=== PATIENT | male | born 1950 | race Caucasian/White ===

== ENCOUNTER 2018-07-29 11:04 | Inpatient (IN) ==
--- NOTE | 2018-07-29 11:25 | PDOC ---
Abdomen/Flank HPI - General Chief Complaint: Abdomen Pain Stated Complaint: ABDOMINAL PAIN Date Seen by Provider: 07/29/18 Time Seen by Provider: 11:24 Source: POSITIVE: Patient, Spouse Exam Limitations: POSITIVE: No limitations Nurse's Notes Reviewed & Considered: Yes - History of Present Illness Initial Comments: This is a well-developed, well-nourished, very pleasant, 67-year-old male, complaining of left lower quadrant abdominal pain. Patient with sudden onset of left lower abdominal pain that began yesterday afternoon while sitting at home resting. Pain has escalated and gotten worse today with with focal tenderness in the left lower quadrant. His initial pain was in the left lower quadrant and left upper quadrant and he had nausea and dry heaves, also a headache. Today he denies headache, no sore throat, no chest pain or shortness of breath, he does have nausea but no vomiting or diarrhea, no hematuria or dysuria, he does have chills but no fever and no sweats. Denies any myalgias or arthralgias, no rash es. Patient has a history of testicular cancer and left-sided orchiectomy that was performed last year and [facility] by Dr. Luis Angel Lovell. He subsequently received chemotherapy at [facility]. His checkup in July was normal. Body Location Affected: REPORTS: Abdomen Timing: REPORTS: Abrupt Duration: <24 hours Severity: Severe Quality: REPORTS: Cramping, "Pain", Tenderness Abdominal Pain Onset Location: REPORTS: LUQ, LLQ Abdominal Pain Radiation: REPORTS: No radiation Context: REPORTS: Rest, Sitting Modifying Factors: improves with: Nothing Associated Symptoms: REPORTS: Chills, Nausea Similar Symptoms Previously: No Recent Care Received: REPORTS: Denies Any Prior Injuries Related to Current Complaint?: No - Patient Home Medications Home Medications: Home Medications olmesartan 20 mg-hydrochlorothiazide 12.5 mg tablet 1 tab PO QDAY #30 tab 03/28/18 - Patient Allergies Allergies/Adverse Reactions: Allergies Allergy/AdvReac Type Severity Reaction Status Date / Time Penicillins Allergy NOT Verified 07/29/18 11:17 APPLICABLE procaine HCl [From Novocain] Allergy Headaches Verified 07/29/18 11:17 Past Medical History - heen Additional HEENT History: Glasses Cardiovascular History: Hypertension Additional Respiratory History: Seasonal allergies Gastrointestinal History: Denies History Genitourinary History: Denies History Endocrine History: Denies History Musculoskeletal History: Arthritis Prosthesis or Implant: No Neurological History: Denies History Blood Disorders: Denies History Psychiatric History: Depression History of Sexually Transmitted Diseases: No Cancer History: Skin History of MDRO: No History of Other Communicable Diseases: No In the Past 12 Months, Have Used or Abuse Any Substance: None Type / Date of Surgery: Hernia repair as a child, Testical removal, colonoscopy, Right hand surgery to fingers. Anesthesia Reactions: Yes (PONV) Malignant Hyperthermia: No Significant Family History: Cancer ROS - Limitations ROS Limitations: No Limitations Constitution: REPORTS: Chills Cardiovascular: REPORTS: Denies Cardiac Symptoms Respiratory: REPORTS: Denies Resp Symptoms Neurological: REPORTS: Denies Neuro Symptoms Gastrointestinal: REPORTS: Abdominal Pain, Nausea Endocrine: REPORTS: Denies Symptoms Musculoskeletal: REPORTS: Denies MS Symptoms Genitourinary: REPORTS: Denies Symptoms Eyes: REPORTS: Denies Symptoms ENT: REPORTS: Denies Symptoms Skin: REPORTS: Denies Skin Symptoms Lympathic: REPORTS: Denies Lympathic Symptoms Immunologic: POSITIVE: Denies Symptoms Psychiatric: POSITIVE: Denies Psych Symptoms Abdominal/Flank Pain PE - General Appearance General Appearance: POSITIVE: Alert, Cooperative, No Acute Distress, No Evidence of Trauma - HEENT HEENT: POSITIVE: Head Inspection Nml, Eyes Inspection Nml, Ears Inspection Nml, Nose Inspection Nml, Oral/Dental Inspect. Nml, Pharynx Inspect. Nml, PERRL, EOMI - Neck Neck: POSITIVE: Normal Inspection, No Apparent Injury - Respiratory Respiratory: POSITIVE: No Respiratory Distress, Breath Sounds Normal, Chest Non- Tender - Cardiovascular Cardiovascular: POSITIVE: Regular Rate and Rhythm, Heart Sounds Normal, Strong Pulses Peripheral Pulses: Radial (L): 4+ - Chest Chest: POSITIVE: Non Tender - Abdomen Abdomen: Soft: (All Quadrants), Normal Bowel Sounds: (All Quadrants), Denies Tenderness: (RLQ), (RUQ), No Splenomegaly: (All Quadrants), No Hepatomegaly: (All Quadrants), No Guarding: (RLQ), (LUQ), (RUQ), No Rebound: (All Quadrants), No Palpable Pulse: (All Quadrants), No Palpabale Mass: (All Quadrants), No Distention: (All Quadrants), No Rigidity: (All Quadrants), Tenderness Noted: (LLQ), (LUQ), Guarding: (LLQ) - Back Back: POSITIVE: Normal Inspection - Skin Skin: POSITIVE: Intact, Normal For Race, Warm, Dry, No Rash - Extremities Extremity: Non-Tender: (All Extremities), Normal ROM: (All Extremities), Normal Inspection: (All Extremities), Pelvis Stable: (All Extremities) - Neurological Neurological: POSITIVE: Affect Apporpriate, Oriented X3, Motor Normal, Sensation Normal - Psychological Psychiatric: POSITIVE: Affect Appropriate, Mood Appropriate Abdomen Progress - Results Reviewed by me Xrays/CTs/US Reviewed by me: Yes Discussed with Radiologist: Yes Lab Results Reviewed by Me: Yes CBC and BMP: 07/29/18 11:10 07/29/18 11:10 - Patient's Progress Pain Medication Addressed: POSITIVE: Yes Re-examine Time: 14:17 Status: POSITIVE: Improved MDM / ED Course: Patient was evaluated, an IV started, blood drawn and sent to the lab for studies, CT examination of his abdomen was obtained. Findings: CBC shows white count of 18.7 with normal hemoglobin and hematocrit and platelets, neutrophils are elevated at 88.9%, lymphs are 6.4%, monocytes are 4.3%. ESR is normal at 11 and CRP is elevated at 19.8. Urinalysis is negative. CMP shows abnormalities of potassium at 3.6, BUN of 24, creatinine 1.4, glucose 154, total bilirubin of 2.7, ALT of 16. Magnesium is normal at 1.8. Amylase is 67 and lipase is 18. CT scan of the abdomen shows perforated viscus likely from a diverticuli. Assessment: Acute abdomen with perforated diverticuli. Plan: I have contacted Dr. Gwyn Gray, who is coming to the emergency room to evaluate the patient and taking them to surgery for indicated procedures. He was started on Invanz, 1 g IV. - Consult Consult (If Yes, Name of Consulting MD & Time Called): Yes (Dr. Tipton 1410 hrs) Consulting MD will see pt:: POSITIVE: [facility] Admit Counseled: POSITIVE: Patient, Family, RE: Lab Results, RE: Radiology Results, RE: DX Patient Care Time - Estimated PCT Patient Care Time (In Minutes): 45 Vital Signs - VS Reviewed Vital Signs Reviewed: Yes Discharge Clinical Impression: Perforated bowel Discharge Disposition: Admit to Inpatient Condition: Stable Follow Up With: PERLA MAHONEY [Primary Care Provider] - Date Decision to Admit to Inpatient: 07/29/18 Time Decision to Admit to Inpatient: 14:10
[2018-07-29 11:30] LABS: BASOPHILS # (AUTO) 0.01 10*3/UL; BASOPHILS % (AUTO) 0.1 % (0-1); EOSINOPHILS # (AUTO) 0 10*3/UL; EOSINOPHILS % (AUTO) 0 % (0-8); Hematocrit [HCT] 45.8 % (42.0-52.0); MEAN CORPUSCULAR HEMOGLOBIN 32.7 PG (27-31); MEAN CORPUSCULAR HGB CONC 34.9 g/dL (33-37); MEAN CORPUSCULAR VOLUME 93.5 FL (80-90); MEAN PLATELET VOLUME 9.4 FL (7.4-12.2); MONOCYTES # (AUTO) 0.81 10*3/UL (0.3-0.8); MONOCYTES % (AUTO) 4.3 % (5-15); NEUTROPHILS # (AUTO) 16.62 10*3/UL; NEUTROPHILS % (AUTO) 88.9 % (50-80)
[2018-07-29] MEDS ORDERED: ONDANSETRON 4 MG/2 ML VIAL IVP ONE (11:33)
[2018-07-29] MEDS ORDERED: MORPHINE SULFATE 4 MG/1 ML IVP ONE (11:33)
[2018-07-29] MEDS ORDERED: Sodium Chloride 0.9% 1,000 ML PRIMARY IV ONE (11:33)
[2018-07-29 11:37] LABS: PLATELET MORPHOLOGY COMMENT NORMAL MORPHOLOGY (NORM); RBC MORPHOLOGY COMMENT NORMAL MORPHOLOGY (NORM); WBC MORPHOLOGY COMMENT NORMAL MORPHOLOGY (NORM)
[2018-07-29 11:39] LABS: BUN/CREATININE RATIO 17.14 (6-20); SERUM ALBUMIN 4.4 g/dL (3.5-4.8)
[2018-07-29 12:08] LABS: Erythrocyte Sediment Rate 11 MM/HR (0-15)
[2018-07-29 13:41] LABS: BILIRUBIN,URINE NEGATIVE (NEG); CLARITY,URINE CLEAR (CLEAR); COLOR,URINE YELLOW (Y); GLUCOSE, URINE (UA) NEGATIVE (NEG); PH,URINE 5.5 (5.0-8.5); PROTEIN,URINE NEGATIVE (NEG); UROBILINOGEN,URINE 0.2 EU/dL (0.2)
[2018-07-29 13:43] LABS: OCCULT BLOOD,URINE TRACE (NEG)
[2018-07-29 13:48] LABS: BACTERIA,URINE FEW; RBC,URINE 0-4 /hpf; SQUAMOUS EPITHELIAL CELL,UR FEW; URINE SAMPLE TYPE CLEAN CATCH URINE; WBC,URINE 0-1
[2018-07-29] MEDS ORDERED: Lactated Ringers 1,000 ML PRIMARY IV ONE ×4 (14:14→18:53)
[2018-07-29] MEDS ORDERED: Ertapenem Inj 1 GM in Sodium Chloride 0.9% 100 ML IV ONE (14:14)
--- NOTE | 2018-07-29 14:26 | DI ---
CT Abdomen/Pelvis W Contrast 07/29/2018 10:24 AM History: [facility] DI ^abd pain Comparison: 07/10/2018. Technique: Imaging was performed with a multi-detector CT scanner. Data acquisition was obtained from the dome of the diaphragm through the pubic symphysis without oral contrast and after the uneventful administration of 75 mL of Omnipaque 300 intravenous contrast material. Multiplanar reformations wer e performed. Findings: There is colonic diverticulosis with bowel wall thickening and evidence of hollow viscus pe rforation in the left lower quadrant where there is a flocculent collection along the posterior aspec t of the colon that most likely represents extraluminal stool. There is no definite rim-enhancing for med fluid collection to suggest abscess formation. Free intraperitoneal air is noted along the left p osterior peritoneum extending to the level of the third segment of the duodenum. Moderate fat strandi ng and fascial thickening is noted along the left lateral pelvis. Hollow viscus organs demonstrate ot herwise normal course and caliber. No abdominopelvic lymphadenopathy is present. A 1.8 cm simple cyst is noted in the interpolar region of the right kidney. There is normal CT appear ance of the liver, gallbladder, adrenal glands, spleen, left kidney, and pancreas. Vascular structure s are intact with atheromatous aortoiliac calcifications. The celiac and common hepatic arteries are ectatic at 1.4 cm. There is no inguinal or abdominal wall hernia. The osseous structures are within normal limits for the patient's age. The lung bases are notable for bilateral dependent lower lobe and lingular atelectasis. Heart size is normal without pericardial effusion. Impression: 1. There is colonic diverticulosis and evidence of hollow viscus perforation in the left lower quadra nt where there is a flocculent collection that most likely represents extraluminal stool. There is no definite rim-enhancing fluid collection to suggest abscess formation. Surgical consultation is recom mended for definitive management. 2. The celiac and common hepatic arteries are ectatic at 1.4 cm. These findings were discussed telephonically with Dr. Martinez of the Emergency Department at 13:15 shi rs on the day of the exam.
[2018-07-29] MEDS ORDERED: fentaNYL Inj 250 MCG/5 ML VIAL ONE ×3 (15:44→17:38)
[2018-07-29] MEDS ORDERED: MIDAZOLAM HCL 2 MG/2 ML VIAL ONE (15:44)
[2018-07-29] MEDS ORDERED: PROPOFOL 10 MG/1 ML (200 MG/20 ML) VIAL IV ONE (15:47)
[2018-07-29] MEDS ORDERED: KETAMINE 100 MG/1 ML - 5 ML ONE (15:49)
[2018-07-29] MEDS ORDERED: LIDOCAINE W/ SODIUM BICARB 0.5 ML SYR ONE (15:54)
[2018-07-29] MEDS ORDERED: LIDOCAINE HCL 2 % 10 ML JELLY URO-JECT TOPICAL ONE ×2 (15:54→16:45)
[2018-07-29] MEDS ORDERED: ROCURONIUM 10 MG/1 ML - 5 ML VIAL IVP ONE ×2 (15:55→17:04)
[2018-07-29] MEDS ORDERED: SUCCINYLCHOLINE CHLORIDE 20 MG/1 ML - 10 ML ONE (15:55)
--- NOTE | 2018-07-29 15:59 | PDOC ---
HPI - History of Present Illness Date of Service: 07/29/18 Time of Service: 15:54 Chief Complaint: Left lower quadrant pain History of Present Illness: 67-year-old gentleman who comes in with having a 2 day history of left lower quadrant abdominal pain. The patient states that the pain started on 07/28/2018. Pain progressively became more severe. Patient came in the emergency department. Patient states he's been having chills at home but has not recorded a fever. Patient's workup in the emergency department included a white count which is elevated over 18,000. Left shift. Patient had a CT scan that shows a perforated colon. There is inflammatory change from the sigmoid colon. There is free air that is seen. Is also appears to be with the radiologists are: Fecal contamination of the abdominal cavity. Past Medical History Medical History: Testicular cancer. Hypertension Surgical History: Laminectomy. Hernia repair. Colonoscopy over 10 years ago Tobacco Use: Never Smoker In the Past 12 Months, Have Used or Abuse Any of the Following Substance: None Medication / Allergies Home Medications: Home Medications Medication Instructions Recorded Confirmed olmesartan 20 1 tab PO QDAY #30 tab 03/28/18 07/29/18 mg-hydrochlorothiazide 12.5 mg tablet Allergies/Adverse Reactions: Allergies Allergy/AdvReac Type Severity Reaction Status Date / Time Penicillins Allergy NOT Verified 07/29/18 11:17 APPLICABLE procaine HCl [From Novocain] Allergy Headaches Verified 07/29/18 11:17 Exam - Vitals Vital Signs: Vital Signs Temperature 97.6 F Temperature Source Temporal Artery Scan Pulse Rate [Pulse Oximeter] 119 Respiratory Rate 20 Blood Pressure [Left Arm] 148/122 Pulse Ox 96 Oxygen Delivery Method Room Air Height 5 ft 10 in Weight 180 lb - General General Appearance: No Acute Distress, Cooperative - Head Head Exam: Normocephalic - Eye Eye Exam: POSITIVE: PERRL, EOMI - Neck Neck Exam: Normal Inspection, Full ROM - Respiratory Respiratory Exam: POSITIVE: Clear to Auscultation - Bilaterally, Breathing Non Labored - Cardiovascular Cardiovascular Exam: POSITIVE: No Murmur, No Gallops, No Rubs - GI/Abdominal GI/Abdominal Exam: POSITIVE: Soft, Distended, No Hepatomegaly, No Splenomegaly Additional GI/Abdominal Exam Details: Left lower quadrant abdominal pain - Rectal Rectal Exam: POSITIVE: Deferred - External Exam: POSITIVE: Deferred - Extremities Extremities Exam: POSITIVE: Full ROM, No Clubbing Present, No Edema Present - Neurological Neurological Exam: POSITIVE: Alert, Oriented x 3, Normal Gait, CN II-XII Intact - Psychiatric Psychiatric Exam: POSITIVE: Normal Affect, Normal Mood - Integumentary Integumentary Exam: POSITIVE: Normal Color, Warm Results - Labs CBC and BMP: 07/29/18 11:10 07/29/18 11:10 Assessment and Plan - Patient Problems (1) Diverticulitis large intestine w/o perforation or abscess w/bleeding Current Visit: Yes Status: Acute Code(s): K57.33 - Diverticulitis of large intestine without perforation or abscess with bleeding - Assessment / Plan Additional Assessment/Plan Details: This point the patient does have ruptured diverticulitis with perforated bowel. There appears be some fecal contamination. Therefore, I do not think again suggestive antibiotics. This is explained to him. Is taken in surgery for exploratory laparotomy with bowel resection and colostomy. Risks benefits were explained to him and his . They understand these. He does understand he'll get a colostomy today. This with temporary colostomy (with plans in the future taken down). He was started on Invanz in the emergency department. He'll be taking or the first available time.
[2018-07-29] MEDS ORDERED: Nasal Sanitizer POPSWAB ampule 3 AMP (Nozin) PREOP DOSE ENOS SCH ×2 (16:00→16:06)
[2018-07-29] MEDS ORDERED: Lactated Ringers 1,000 ML PRIMARY IV SCH ×3 (16:00→17:30)
[2018-07-29] MEDS ORDERED: ESMOLOL HCL 100 MG/10 ML VIAL ONE (16:26)
[2018-07-29] MEDS ORDERED: LIDOCAINE HCL 2 % 10 ML JELLY URO-JECT TOPICAL PRN (16:46)
[2018-07-29] MEDS ORDERED: METOPROLOL TARTRATE 5 MG/5 ML VIAL ONE (16:56)
[2018-07-29] MEDS ORDERED: ONDANSETRON 4 MG/2 ML VIAL IVP PRN ×3 (17:17→20:40)
[2018-07-29] MEDS ORDERED: Meperidine Inj 50 MG/ML CARPUJECT IVP PRN (17:17)
[2018-07-29] MEDS ORDERED: LIDOCAINE W/ SODIUM BICARB 0.5 ML SYR SUBD PRN (17:17)
[2018-07-29] MEDS ORDERED: ATROPINE SULFATE 0.4 MG/1 ML VIAL IVP PRN (17:17)
[2018-07-29] MEDS ORDERED: Prochlorperazine Edisylate Inj 10mg/2ml vial IVP PRN (17:17)
[2018-07-29] MEDS ORDERED: ePHEDrine Inj 50 MG/ML AMP IVP PRN (17:17)
--- NOTE | 2018-07-29 17:20 | CRNA.PROGR ---
Anesthesia Time - Procedure/Recovery Time Start Date: 07/29/18 End Date: 07/29/18 Anesthesia : Time In: 16:17 Anesthesia : Time Out: 20:07 Anesthesia : Total Time: 230 - Total Anesthesia Time Total Anesthesia Time (minutes): 230 - Other Weight: 81.647 kg Height: 5 ft 10 in Body Mass Index (BMI): 25.8 Physical Status: P3 Anesthesia Type: General Anesthesia : ET
--- NOTE | 2018-07-29 17:21 | CRNA.PROGR ---
Post Anesthesia Phase II - Post Anesthesia Phase II Patient Stable and Discharged To: ICU Care Assumed By Surgeon: Alessandro Tipton MD Temperature: 97.6 F Pulse Rate: 103 Respiratory Rate: 20 Blood Pressure: 109/73 Pulse Ox: 96 Total Shanita Score at Discharge: 8 Post Anesthesia Discharge Criteria Met: Yes Additional Details: Grossly contaminated belly. Probable sepsis. Anticipate aggressive fluid therapy, possible transfusion pulmonary toilet and antibiotic therapy all needed.
--- NOTE | 2018-07-29 17:21 | CRNA.PROGR ---
Anesthesia Recovery Phase I - Post Anesthesia Evaluation Patient's Condition on Arrival in Phase I: Fair Patient's Condition on Arrival in Phase II: Fair (medicated) Pain Level: 4
[2018-07-29] MEDS ORDERED: DEXAMETHASONE PF 10 MG/1 ML VIAL ONE (17:25)
[2018-07-29] MEDS ORDERED: ONDANSETRON 4 MG/2 ML VIAL ONE (17:25)
[2018-07-29] MEDS ORDERED: Hetastarch 6% + NS 500 ML IV ONE ×2 (18:17→19:26)
[2018-07-29] MEDS ORDERED: Sodium Chloride 0.9% 500 ML ONE ×2 (18:38→21:27)
[2018-07-29] MEDS ORDERED: SUGAMMADEX SODIUM 200 MG/2 ML VIAL IV ONE (19:42)
[2018-07-29] MEDS ORDERED: Keys-Morphine PCA PRN ×3 (20:16→20:40)
[2018-07-29] MEDS ORDERED: NALOXONE 0.4 MG/1 ML VIAL IVP PRN ×3 (20:16→20:40)
[2018-07-29] MEDS ORDERED: Acetaminophen 1000mg Inj 1,000 MG/100 ML VIAL IV PRN ×2 (20:16→20:40)
[2018-07-29] MEDS ORDERED: MORPHINE SULFATE/PF PCA 30 MG/30 ML IV SCH (20:30)
[2018-07-29] MEDS ORDERED: D5-1/2NS + 20mEq KCL 1,000 ML PRIMARY IV SCH (20:30)
[2018-07-29] MEDS ORDERED: HYDROmorphone 2 MG/1 ML ONE (20:30)
[2018-07-29] MEDS ORDERED: Ertapenem Inj 1 GM in Sodium Chloride 0.9% 100 ML IV SCH (20:30)
[2018-07-29] MEDS: HYDROmorphone 2 MG/1 ML IVP PRN ×3 (20:32→20:40)
--- NOTE | 2018-07-29 20:38 | GEN.OPNOTE ---
Operative Note Surgery Date: 07/29/18 Preoperative Diagnosis: Diverticulitis with rupture of the colon with stool peritonitis Postoperative Diagnosis: Diverticulitis with rupture of the colon and stool peritonitis. Uncontrolled hemorrhage from spleen Procedure: Sigmoid colectomy with colostomy (Sameer's procedure closed). Mobilization of splenic flexure. Splenectomy Surgeon: Saeed Tipton MD Clinical Rn Liaison: Gio Kaye MD Anesthesia Provider: Arleen Altamirano CRNA Anesthesia Type: General Estimated Blood Loss (mL): 1,300 Fluids: 1 L Hespan. 3, 800 lactated Ringer's Pathology: Sigmoid colon. Spleen Indications: Patient comes with left lower quadrant abdominal pain leukocytosis. CT scan shows that he has a perforated sigmoid colon with appears be fecal contamination Findings: Patient had a posterior ruptured colon with a well-contained fecal contamination in the retroperitoneum. Patient had a very large heavy omentum with numerous accessory spleens Patient developed bleeding from the spleen that could not be controlled with non-operative measures. Therefore, the spleen had to be removed Complications: Splenic bleeding Operative Summary: Patient is brought in operative room. Placed supine position. Given general tracheal anesthesia. Patient is prepped draped sterile fashion. Timeout performed per protocols. I then made a midline incision around his umbilicus down to the pubic symphysis. Hemostased obtained with electrocautery. Dissection through the subcutaneous tissue with electrocautery. I then opened in the midline to the linea alba using left cautery. Bluntly entered the peritoneal cavity. Then placed the fingers in the abdominal cavity and opened up the remainder the peritoneal cavity using electrocautery. The small bowel was out of the way when cutting the perineum. I placed an Mohsen retractor in the abdominal cavity. At this point identified the large mass in the left lower quadrant. I bluntly dissected this way from the sidewall. I ended the "cavity and there is a large amount of free fecalith material within this cavity. I then was able to identify the hole in the posterior wall of the sigmoid colon. I then mobilized the left colon using electrocautery. We found a place that looked like viable noninfected bowel. I made a defect in the mesentery. The TLC 75 stapler across the bowel and divided the descending colon. I think clamped divided the mesentery to mobilize the sigmoid colon. Tied off the mesentery 0 Vicryl sutures. Carried the dissection pass the disease portion of the bowel. I then placed the TXA 60's stapler across the colon thus dividing the colon. Handed off the surgical specimen. We then started irrigating the abdominal cavity. We got up to irrigating the left upper quadrant around the sp fred there is a large amount of what appeared be fresh bleeding and also clots. We put packing up around the spleen in an attempt to control any bleeding. At this point, we went on to mobilize the splenic flexure. I had to dissect through the omentum in this area to get exposure of the transverse colon and to mobilize the splenic flexure. After mobilizing the splenic flexures, I reinspected the spleen. There appeared to be a small bleeding point on the inferior pole of the spleen. This was controlled with electrocautery. We then repacked the area. We left the packing on for 5 minutes. Upon removing the packing it started bleeding. We then divided the inferior short gastrics to get exposure to the hilum. The spleen continued bleeding. We repacked. Every time we removed the packing every time remove the packing the spleen started to rebleed. We found multiple little retroperitoneal bleeders that were controlled. We Remove the packing again and it started bleeding again. The estimated blood loss was over a liter. I believed it was best to do a splenectomy. we took down the short gastrics and tied them with 2-0 Vicryl sutures. This give us exposure to we took the hilar vessels by clamping and dividing own with peon clamps. The spleen was handed off as surgical specimen. We tied off the hilar vessels with 0 Vicryl sutures. This point we found a little area bleeding on the tail of the pancreas. This was controlled with electrocautery. After we had adequate hemostasis we then repacked the left upper quadrant. We then inspected there is some minor bleeding off the omentum which was controlled with electrocautery. There is an omental defect that was closed with 2-0 Vicryl continuous running suture. Is noted the patient had numerous accessory spleens within the omentum. I then removed all packing. There is no further bleeding from around the spleen. We reirrigated the abdominal cavity. Total amount of irrigation was 8 L. I then grasped the skin with Allis clamps. He is electrocautery created a colostomy site. Did a crucifix incision across the fascia. I brought the end of the descending colon out for the colostomy. We closed the midline incision using 0 PDS continuous running suture. We packed the subcutaneous tissue because of the contamination with fecal peritonitis. I then opened up the colon and matured the colostomy with 4-0 Vicryl simple sutures. Colostomy bag place. All counts were correct at the end of the procedure. Patient was transferred to recovery room in stable but guarded condition. Patient Problems - Patient Problem List (1) Diverticulitis large intestine w/o perforation or abscess w/bleeding Current Visit: Yes Status: Acute Code(s): K57.33 - Diverticulitis of large intestine without perforation or abscess with bleeding Category: Medical Procedure Codes - Surgical Procedures Primary Surgical Procedure: Other CPT Code(s) (Colectomy with end colostomy and closure of distal segment Sanchez's procedure CPT code 93321; takedown of splenic flexure CPT code 95920; splenectomy 98922)
[2018-07-29] MEDS ORDERED: Keys-Morphine Palliative Care ONE (21:00)
[2018-07-29] MEDS ORDERED: Keys-Morphine PCA ONE (21:05)
[2018-07-29] MEDS: D5-1/2NS + 20mEq KCL 1,000 ML PRIMARY IV SCH (21:55)
[2018-07-29] MEDS: MORPHINE SULFATE/PF PCA 30 MG/30 ML IV SCH (22:08)
[2018-07-29] MEDS ORDERED: MORPHINE SULFATE 4 MG/1 ML IVP PRN (22:30)
--- NOTE | 2018-07-29 22:42 | PDOC ---
HPI - History of Present Illness Date of Service: 07/29/18 Time of Service: 22:37 Chief Complaint: Abdominal pain History of Present Illness: Very pleasant 67-year-old male that I was consulted on by Dr. Tipton this evening after the patient had ruptured diverticulum with stool in the peritoneal space and eventually needed not only a Sanchez procedure but eventually needed a splenectomy as well. The patient postoperatively is quite groggy, still in some pain, and is on a BOUFFANT CURTAIN MACHINE TENDER with morphine at this time. The history is obtained from his . Preoperatively, he has a history of hypertension. He has not had any coronary artery disease complications or other medical issues develop. He does not smoke and he rarely drinks alcohol. History of diverticular disease was not known that I am aware of. Patient got a dose of Invanz prior to the operating room. Exacerbating factors could not be obtained due to the patient's acute pos toperative state. His hemoglobin currently is around the 9.3 stage, and he is mildly tachycardic with a systolic pressure of just over 100. He is afebrile. It is reported to me that the patient may have already had his Pneumovax vaccine. He did just finish chemotherapy for testicular cancer with METS to the lungs (no brain metastatic disease). Still has his port in the left upper chest. He just had a recent check up with CT scans and blood work with his oncologist and was given a clean bill of health with no evidence of recurrence. Past Medical History Medical History: Testicular cancer. Hypertension Surgical History: Laminectomy. Hernia repair. Colonoscopy over 10 years ago Pertinent Family History: no family history of diabetes. Past Social History: does not smoke, for over 30 years, retired, rarely drinks alcohol, has healthy children Tobacco Use: Never Smoker In the Past 12 Months, Have Used or Abuse Any of the Following Substance: None Alcohol Use: Rarely Medication / Allergies Home Medications: Home Medications Medication Instructions Recorded Confirmed olmesartan 20 1 tab PO QDAY #30 tab 03/28/18 07/29/18 mg-hydrochlorothiazide 12.5 mg tablet Allergies/Adverse Reactions: Allergies Allergy/AdvReac Type Severity Reaction Status Date / Time Penicillins Allergy NOT Verified 07/29/18 11:17 APPLICABLE procaine HCl [From Novocain] Allergy Headaches Verified 07/29/18 11:17 Review of Systems - Review of Systems ROS Unobtainable: Due to Mental Status (Due to his acute postoperative state, and pain medications on board, it's very difficult to obtain a review of systems, although the patient does deny shortness of breath or chest pain.) Exam - Vitals Vital Signs: Vital Signs Temperature 97.3 F Temperature Source Oral Pulse Rate [Pulse Oximeter] 93 Pulse Rate 103 Respiratory Rate 12 Blood Pressure [Left Arm] 107/70 Blood Pressure 109/73 Pulse Ox 97 Oxygen Flow Rate 4 Oxygen Delivery Method Nasal Cannula Height 5 ft 10 in Weight 188 lb Appears somewhat pale - General General Appearance: Cooperative - Head Head Exam: Normal Inspection, Normocephalic, Atraumatic - Eye Eye Exam: POSITIVE: No Scleral Icterus - ENT ENT Exam: POSITIVE: Mucous Membranes Dry - Neck Neck Exam: Normal Inspection, No Tenderness, No Lymphadenopathy, No Thyromegaly, JVP is not Raised - Respiratory Respiratory Exam: POSITIVE: Breathing Non Labored, Decreased Breath Sounds - Cardiovascular Cardiovascular Exam: POSITIVE: RRR, No Murmur, No Clicks, No Gallops, No Rubs, No JVD - GI/Abdominal GI/Abdominal Exam: POSITIVE: Non Distended, Soft Additional GI/Abdominal Exam Details: Midline incision is dressed, clean, dry, intact. Colostomy pouch as noted in the left lower quadrant, and the bowel appears viable, and pink. - Rectal Rectal Exam: POSITIVE: Deferred - External Exam: POSITIVE: Deferred Exam: POSITIVE: Deferred, Alanis Catheter in Place - Extremities Extremities Exam: POSITIVE: No Clubbing Present, No Edema Present, No Cyanosis Present - Neurological Neurological Exam: POSITIVE: Alert, No Facial Droop, Speech Intact / Clear, Mo ves All Extremities Equally Additional Neurological Exam Details: Is in some pain. Speech is intact and clear. Moves his extremities equally. Results - Labs CBC and BMP: 07/29/18 11:10 07/29/18 11:10 Additional Lab Results: Laboratory Results 07/29/18 07/29/18 07/29/18 11:10 11:10 13:32 WBC 18.70 H RBC 4.90 Hgb 16.0 Hct 45.8 MCV 93.5 H MCH 32.7 H MCHC 34.9 RDW Std Deviation 44.1 RDW Coeff of Sravani 13.3 Plt Count 157 MPV 9.4 Immature Gran % (Auto) 0.3 Neut % (Auto) 88.9 H Lymph % (Auto) 6.4 L Moore % (Auto) 4.3 L Eos % (Auto) 0 Baso % (Auto) 0.1 Immature Gran # (Auto) 0.06 Neut # (Auto) 16.62 Lymph # (Auto) 1.20 Moore # (Auto) 0.81 H Eos # (Auto) 0 Baso # (Auto) 0.01 WBC Morphology Comment Normal morphology Plt Morphology Comment Normal morphology RBC Morph Comment Normal morphology ESR 11 Sodium 138 Potassium 3.6 L Chloride 98 Carbon Dioxide 24 Anion Gap 16 BUN 24 H Creatinine 1.4 Estimated GFR 51 BUN/Creatinine Ratio 17.14 Glucose 154 H Calculated Osmolality 292.0 Calcium 9.6 Magnesium 1.8 Total Bilirubin 2.7 H AST 27 ALT 16 L Alkaline Phosphatase 89 C-Reactive Protein 19.8 H Total Protein 7.5 Albumin 4.4 Globulin 3.1 Albumin/Globulin Ratio 1.40 Amylase 67 Lipase 18 L Ur Collection Type Clean catch urine Urine Color Yellow Urine Clarity Clear Urine pH 5.5 Ur Specific [place] <=1.005 Urine Protein Negative Urine Glucose (UA) Negative Urine Ketones Negative Urine Occult Blood Trace H Urine Nitrate Negative Urine Bilirubin Negative Urine Urobilinogen 0.2 Ur Leukocyte Esterase Negative Urine RBC 0-4 Urine WBC 0-1 Ur Squamous Epith Cells Few Ur Renal Epithelial Cell None Urine Crystals None Urine Bacteria Few Urine Casts None Urine Mucus None Urine Trichomonas None Urine Yeast None Ur Culture Indicated? Culture not set Blood Type Antibody Screen Crossmatch 07/29/18 18:05 WBC RBC Hgb Hct MCV MCH MCHC RDW Std Deviation RDW Coeff of Sravani Plt Count MPV Immature Gran % (Auto) Neut % (Auto) Lymph % (Auto) Moore % (Auto) Eos % (Auto) Baso % (Auto) Immature Gran # (Auto) Neut # (Auto) Lymph # (Auto) Moore # (Auto) Eos # (Auto) Baso # (Auto) WBC Morphology Comment Plt Morphology Comment RBC Morph Comment ESR Sodium Potassium Chloride Carbon Dioxide Anion Gap BUN Creatinine Estimated GFR BUN/Creatinine Ratio Glucose Calculated Osmolality Calcium Magnesium Total Bilirubin AST ALT Alkaline Phosphatase C-Reactive Protein Total Protein Albumin Globulin Albumin/Globulin Ratio Amylase Lipase Ur Collection Type Urine Color Urine Clarity Urine pH Ur Specific [place] Urine Protein Urine Glucose (UA) Urine Ketones Urine Occult Blood Urine Nitrate Urine Bilirubin Urine Urobilinogen Ur Leukocyte Esterase Urine RBC Urine WBC Ur Squamous Epith Cells Ur Renal Epithelial Cell Urine Crystals Urine Bacteria Urine Casts Urine Mucus Urine Trichomonas Urine Yeast Ur Culture Indicated? Blood Type O POSITIVE Antibody Screen Negative Crossmatch See Detail - Imaging Status: Image Reviewed by Me (I looked at the CT scan of the abdomen and pelvis and also read the radiology report.) Assessment and Plan - Patient Problems (1) Diverticulitis of large intestine with perforation Current Visit: Yes Status: Acute Code(s): K57.20 - Diverticulitis of large intestine with perforation and abscess without bleeding (2) Status post splenectomy Current Visit: Yes Status: Acute Code(s): Z90.81 - Acquired absence of spleen (3) History of testicular cancer Current Visit: Yes Status: Acute Code(s): Z85.47 - Personal history of malignant neoplasm of testis (4) Benign essential hypertension Current Visit: Yes Status: Acute Onset Date: 11/20/11 Code(s): I10 - Essential (primary) hypertension - Assessment / Plan Additional Assessment/Plan Details: In terms of the patient's hypertension, I recommend holding off on FUAD inhibitor and also on hydrochlorothiazide. In terms of the traumatic splenectomy, the patient should have the following vaccines at 14 days postoperatively, which would be August 12 or 08/13/2018, Pneumovax probably daily and 23, meningococcal diphtheria and polysaccharide vaccines, and Haemophilus influenza B vaccine. The patient should then subsequently have Prevnar 13 about a year later, and repeat the meningococcal vaccines about every 3-5 years. These are typically recommended by the CDC. He should consider doing flu vaccines to help prevent influenza and reduce risk of strep pneumoniae bacteria infections post viral infections on an annual basis during flu season. His immunocompromised state at this point, from my perspective, would mean that it would be best to vaccinate at the 14 days postoperatively to allow his immune system to fully respond to these vaccines. I agree with Salo. Review of the literature shows that in 2018 a study was done on a little over 500 patients that suggests that IV antibiotics in the setting of peritonitis could be discontinued at anywhere from 4-8 days postoperatively, depending on control of infection and signs such as leukocytosis, fever, and other measures such as Pro calcitonin levels which we do not have available here. The patient is in pain, but has had some trouble pushing his BOUFFANT CURTAIN MACHINE TENDER button so I will go ahead and write for when necessary morphine for pain not controlled by the BOUFFANT CURTAIN MACHINE TENDER. We have ICU monitoring including that for hypoxia. Check a CBC to make sure were correlating with hemodynamic monitoring. I recommend transfusion if hemoglobin is 7 or less. If possible, would be best to get leuko-poor and irradiated blood for transfusion due to the patient's splenectomy. I will try to discuss with the laboratory year. Thank you for this consult. I'll be our pleasure to continue to assist in managing the setting of this patient's acute surgical issues from the [facility] perspective.
[2018-07-29 23:14] LABS: Hematocrit [HCT] 25.6 % (42.0-52.0); Hemoglobin [HGB] 8.5 g/dL (14.0-18.0); MEAN CORPUSCULAR HEMOGLOBIN 32.7 PG (27-31); MEAN CORPUSCULAR HGB CONC 33.2 g/dL (33-37); MEAN CORPUSCULAR VOLUME 98.5 FL (80-90); MEAN PLATELET VOLUME 8.7 FL (7.4-12.2); RED BLOOD COUNT 2.6 10^6/uL (4.70-6.10)
[2018-07-30] MEDS ORDERED: diphenhydrAMINE 50 MG/1 ML VIAL IVP PRN (00:46)
[2018-07-30] MEDS: MORPHINE SULFATE/PF PCA 30 MG/30 ML IV SCH (04:26)
[2018-07-30] MEDS: D5-1/2NS + 20mEq KCL 1,000 ML PRIMARY IV SCH ×2 (04:32→12:32)
[2018-07-30 04:48] LABS: Hematocrit [HCT] 24.2 % (42.0-52.0); MEAN CORPUSCULAR HEMOGLOBIN 32.7 PG (27-31); MEAN CORPUSCULAR HGB CONC 33.1 g/dL (33-37); MEAN CORPUSCULAR VOLUME 98.8 FL (80-90); MEAN PLATELET VOLUME 9.8 FL (7.4-12.2); RED BLOOD COUNT 2.45 10^6/uL (4.70-6.10)
[2018-07-30 04:53] LABS: BUN/CREATININE RATIO 18.33 (6-20); SERUM ALBUMIN 1.8 g/dL (3.5-4.8)
[2018-07-30 05:08] LABS: BAND NEUTROPHILS % 5 % (0-10); BASOPHILS % (MANUAL) 0 % (0-1); EOSINOPHILS % (MANUAL) 0 % (0-8); MONOCYTES % (MANUAL) 4 % (0-12); NEUTROPHILS % (MANUAL) 76 % (50-80); PLATELET MORPHOLOGY COMMENT NORMAL MORPHOLOGY (NORM); RBC MORPHOLOGY COMMENT NORMAL MORPHOLOGY (NORM); WBC MORPHOLOGY COMMENT NORMAL MORPHOLOGY (NORM)
[2018-07-30] MEDS: PANTOPRAZOLE IV 40 MG VIAL IVP SCH (08:41)
[2018-07-30] MEDS ORDERED: Sodium Chloride 0.9% 500 ML IV ONE (08:53)
--- NOTE | 2018-07-30 08:59 | PDOC(PROG) ---
Subjective Post Op Day: 1 Pain Management: Peripheral GENETICS TEACHER Alanis Catheter: Yes Flatus: No Diet: NPO Ambulating: Yes Date of Service: 07/30/18 Time of Service: 08:56 Interval History: Patient states that he is feeling better. He is pain is under control with GENETICS TEACHER and IV Tylenol. He denies any shortness breath or chest pain. Objective : Data - Labs CBC and BMP: 07/30/18 04:21 07/30/18 04:21 - Vital Signs Vital Signs and I&O: Vital Signs - Last Taken Temperature 98.4 F 07/30/18 07:00 Pulse Rate 95 07/30/18 07:00 Respiratory Rate 18 07/30/18 07:00 Blood Pressure 100/66 07/30/18 07:00 Pulse Ox 94 07/30/18 07:00 Intake and Output (24hr x 4 totals) 07/28/18 07/29/18 07/30/18 07/31/18 05:59 05:59 05:59 05:59 Intake Total 6804 / 6804 Output Total 1855 / 1855 Balance 4949 / 4949 Objective : Exam - General General Appearance: No Acute Distress, Cooperative - Respiratory Respiratory Exam: Clear to Auscultation - Bilaterally, Breathing Non Labored - GI/Abdominal GI/Abdominal Exam: Non Distended, Soft Additional GI/Abdominal Exam Details: [place] looks little bit dusky but viable Assessment and Plan - Patient Problems (1) Diverticulitis large intestine w/o perforation or abscess w/bleeding Current Visit: Yes Status: Acute Code(s): K57.33 - Diverticulitis of large intestine without perforation or abscess with bleeding - Assessment / Plan Additional Assessment/Plan Details: Patient is pointing is doing fine. Hemoglobin has drifted down to 8. I do not think there is active bleeding I think is more delusional. White count is normal. His BUN is elevated along with his creatinine think it is prerenal. Will check cardiodynamics. Urine output is under 30 mL an hour therefore we'll give him a fluid bolus. I discussed with the patient about doing a blood transfusion for osmotic effect that he had this point is reluctant to have it done because of the risk of the transfusion. I think since he is hemodynamically stable and his hemoglobin still is above 7 we can wait. Will check another H&H this afternoon.
[2018-07-30] MEDS ORDERED: PANTOPRAZOLE IV 40 MG VIAL IVP SCH (09:00)
--- NOTE | 2018-07-30 09:46 | CD ---
[facility] [place] Interpretive Statements [email or web address]
--- NOTE | 2018-07-30 10:34 | CRNA.PROGR ---
Anesthesia Note - Progress Notes Anesthesia Progress Note: At 6 am pt lying in bed with at bedside. Easily awakened. States he is comfortable. On an peripheral IV NURSING ASSISTANT utilizing Morphine. He denies nausea. Mentation is clear. Laboratory Results 07/29/18 07/29/18 07/29/18 11:10 11:10 13:32 WBC 18.70 H RBC 4.90 Hgb 16.0 Hct 45.8 MCV 93.5 H MCH 32.7 H MCHC 34.9 RDW Std Deviation 44.1 RDW Coeff of Sravani 13.3 Plt Count 157 MPV 9.4 Immature Gran % (Auto) 0.3 Neut % (Auto) 88.9 H Lymph % (Auto) 6.4 L [place] % (Auto) 4.3 L Eos % (Auto) 0 Baso % (Auto) 0.1 Immature Gran # (Auto) 0.06 Neut # (Auto) 16.62 Lymph # (Auto) 1.20 [place] # (Auto) 0.81 H Eos # (Auto) 0 Baso # (Auto) 0.01 Neutrophils % (Manual) Band Neutrophils % Lymphocytes % (Manual) Monocytes % (Manual) Eosinophils % (Manual) CBC and BMP 07/30/18 04:21 07/30/18 04:21 Basophils % (Manual) Metamyelocytes % Myelocytes % Promyelocytes % Blast Cells WBC Morphology Comment Normal morphology Plt Morphology Comment Normal morphology RBC Morph Comment Normal morphology ESR 11 Sodium 138 Potassium 3.6 L Chloride 98 Carbon Dioxide 24 Anion Gap 16 BUN 24 H Creatinine 1.4 Estimated GFR 51 BUN/Creatinine Ratio 17.14 Glucose 154 H Calculated Osmolality 292.0 Calcium 9.6 Magnesium 1.8 Total Bilirubin 2.7 H AST 27 ALT 16 L Alkaline Phosphatase 89 C-Reactive Protein 19.8 H Total Protein 7.5 Albumin 4.4 Globulin 3.1 Albumin/Globulin Ratio 1.40 Amylase 67 Lipase 18 L Ur Collection Type Clean catch urine Urine Color Yellow Urine Clarity Clear Urine pH 5.5 Ur Specific [place] <=1.005 Urine Protein Negative Urine Glucose (UA) Negative Urine Ketones Negative Urine Occult Blood Trace H Urine Nitrate Negative Urine Bilirubin Negative Urine Urobilinogen 0.2 Ur Leukocyte Esterase Negative Urine RBC 0-4 Urine WBC 0-1 Ur Squamous Epith Cells Few Ur Renal Epithelial Cell None Urine Crystals None Urine Bacteria Few Urine Casts None Urine Mucus None Urine Trichomonas None Urine Yeast None Ur Culture Indicated? Culture not set Blood Type Antibody Screen Crossmatch 07/29/18 07/29/18 07/30/18 18:05 23:13 04:21 WBC 9.33 10.32 RBC 2.60 L 2.45 L Hgb 8.5 L 8.0 L Hct 25.6 L 24.2 L MCV 98.5 H 98.8 H MCH 32.7 H 32.7 H MCHC 33.2 33.1 RDW Std Deviation 45.2 45.7 RDW Coeff of Sravani 13.1 13.2 Plt Count 86 L 101 L MPV 8.7 9.8 Immature Gran % (Auto) Neut % (Auto) Lymph % (Auto) [place] % (Auto) Eos % (Auto) Baso % (Auto) Immature Gran # (Auto) Neut # (Auto) Lymph # (Auto) [place] # (Auto) Eos # (Auto) Baso # (Auto) Neutrophils % (Manual) 76 Band Neutrophils % 5 Lymphocytes % (Manual) 15 Monocytes % (Manual) 4 Eosinophils % (Manual) 0 Basophils % (Manual) 0 Metamyelocytes % Not Reportable Myelocytes % Not Reportable Promyelocytes % Not Reportable Blast Cells Not Reportable WBC Morphology Comment Normal morphology Plt Morphology Comment Normal morphology RBC Morph Comment Normal morphology ESR Sodium Potassium Chloride Carbon Dioxide Anion Gap BUN Creatinine Estimated GFR BUN/Creatinine Ratio Glucose Calculated Osmolality Calcium Magnesium Total Bilirubin AST ALT Alkaline Phosphatase C-Reactive Protein Total Protein Albumin Globulin Albumin/Globulin Ratio Amylase Lipase Ur Collection Type Urine Color Urine Clarity Urine pH Ur Specific [place] Urine Protein Urine Glucose (UA) Urine Ketones Urine Occult Blood Urine Nitrate Urine Bilirubin Urine Urobilinogen Ur Leukocyte Esterase Urine RBC Urine WBC Ur Squamous Epith Cells Ur Renal Epithelial Cell Urine Crystals Urine Bacteria Urine Casts Urine Mucus Urine Trichomonas Urine Yeast Ur Culture Indicated? Blood Type O POSITIVE Antibody Screen Negative Crossmatch See Detail 07/30/18 04:21 WBC RBC Hgb Hct MCV MCH MCHC RDW Std Deviation RDW Coeff of Sravani Plt Count MPV Immature Gran % (Auto) Neut % (Auto) Lymph % (Auto) [place] % (Auto) Eos % (Auto) Baso % (Auto) Immature Gran # (Auto) Neut # (Auto) Lymph # (Auto) [place] # (Auto) Eos # (Auto) Baso # (Auto) Neutrophils % (Manual) Band Neutrophils % Lymphocytes % (Manual) Monocytes % (Manual) Eosinophils % (Manual) Basophils % (Manual) Metamyelocytes % Myelocytes % Promyelocytes % Blast Cells WBC Morphology Comment Plt Morphology Comment RBC Morph Comment ESR Sodium 138 Potassium 4.6 Chloride 105 Carbon Dioxide 21 L Anion Gap 12 BUN 33 H Creatinine 1.8 H Estimated GFR 38 BUN/Creatinine Ratio 18.33 Glucose 249 H Calculated Osmolality 300.0 H Calcium 7.1 L Magnesium 1.6 Total Bilirubin 1.1 AST 20 L ALT 19 L Alkaline Phosphatase 42 C-Reactive Protein Total Protein 3.5 L Albumin 1.8 L Globulin 1.7 L Albumin/Globulin Ratio 1.00 L Amylase Lipase Ur Collection Type Urine Color Urine Clarity Urine pH Ur Specific [place] Urine Protein Urine Glucose (UA) Urine Ketones Urine Occult Blood Urine Nitrate Urine Bilirubin Urine Urobilinogen Ur Leukocyte Esterase Urine RBC Urine WBC Ur Squamous Epith Cells Ur Renal Epithelial Cell Urine Crystals Urine Bacteria Urine Casts Urine Mucus Urine Trichomonas Urine Yeast Ur Culture Indicated? Blood Type Antibody Screen Crossmatch Hgb has decreased a small amount from last night. Intake and Output (24hr x 4 totals) 07/28/18 07/29/18 07/30/18 07/31/18 05:59 05:59 05:59 05:59 Intake Total 6804 / 6804 Output Total 1855 / 1855 Balance 4949 / 4949 Weight Obtain Weight Start: 07/29/18 20:40 Freq: QAM Status: Active Protocol: Document 07/30/18 07:00 [id number] (Rec: 07/30/18 10:20 [id number]) Urine output is less than wanted. Overall in my opinion he looks seems stable. Anemia may require transfusion.
[2018-07-30] MEDS: HEPARIN 500 UNIT/5 ML SYRINGE FOR CENTRAL LINE IVP PRN (15:29)
[2018-07-30 16:02] LABS: Hematocrit [HCT] 20.7 % (42.0-52.0); Hemoglobin [HGB] 6.9 g/dL (14.0-18.0)
[2018-07-30] MEDS ORDERED: Sodium Chloride 0.9% 500 ML PRIMARY IV ONE (16:02)
--- NOTE | 2018-07-30 18:31 | PDOC(PROG) ---
Date of Service: 07/30/18 Time of Service: 18:24 Interval History: patient seen, evaluated earlier today. discussed with surgery and RN no chest pain or SOB. no nausea or vomiting. abdominal pain was controlled earlier. throat was scratchy, but ice was helping. Objective : Data - Labs CBC and BMP: 07/30/18 15:20 07/30/18 15:20 Objective : Exam - General General Appearance: No Acute Distress, Cooperative Additional General Exam Details: Vital Signs - Last Taken Temperature 97.5 F 07/30/18 17:16 Pulse Rate 102 H 07/30/18 18:00 Respiratory Rate 23 07/30/18 18:00 Blood Pressure 115/66 07/30/18 18:00 Pulse Ox 91 07/30/18 18:00 - Head Head Exam: Normal Inspection, Normocephalic, Atraumatic - Eye Eye Exam: No Scleral Icterus - ENT ENT Exam: Mucous Membranes Moist - Neck Neck Exam: JVP is not Raised - Respiratory Respiratory Exam: Clear to Auscultation - Bilaterally, Breathing Non Labored - Cardiovascular Cardiovascular Exam: RRR, No Murmur, No Clicks, No Gallops, No Rubs, No JVD - GI/Abdominal GI/Abdominal Exam: Non Distended Additional GI/Abdominal Exam Details: incision is dressed, C/D/I colostomy with pink, viable bowel, no erythema blood in colostomy bag - Extremities Extremities Exam: No Clubbing Present, No Edema Present, No Cyanosis Present - Neurological Neurological Exam: Alert, Oriented x 3, No Facial Droop, Speech Intact / Clear, Moves All Extremities Equally - Psychiatric Psychiatric Exam: Normal Affect, Normal Mood Assessment and Plan - Patient Problems (1) Acute renal failure Current Visit: Yes Status: Acute Code(s): N17.9 - Acute kidney failure, unspecified Qualifiers: Acute renal failure type: unspecified Qualified Code(s): N17.9 - Acute k idney failure, unspecified (2) Acute blood loss anemia Current Visit: Yes Status: Acute Code(s): D62 - Acute posthemorrhagic anemia (3) Diverticulitis of large intestine with perforation Current Visit: Yes Status: Acute Code(s): K57.20 - Diverticulitis of large intestine with perforation and abscess without bleeding (4) Status post splenectomy Current Visit: Yes Status: Acute Code(s): Z90.81 - Acquired absence of spleen (5) History of testicular cancer Current Visit: Yes Status: Acute Code(s): Z85.47 - Personal history of malignant neoplasm of testis (6) Benign essential hypertension Current Visit: Yes Status: Acute Onset Date: 11/20/11 Code(s): I10 - Essential (primary) hypertension - Assessment / Plan Additional Assessment/Plan Details: initially, I felt that renal failure might be prerenal, but urine output is decreasing through the day, Cr increased, and ration of BUN to Cr is more suggestive of ATN transfuse two units PRBC H and H post transfusion immunizations in about 13 days (found he had pneumovax about a year ago, Tdap a bout 4 years ago), but will need prevnar 13 in addition to meningococcal vaccines and HIB b vaccine 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 pain well controlled tolerating ice chips. will discuss with surgery again. get urine lytes, may benefit from renal evaluation. Invanz for now. will need DVT prophylaxis when okay with surgery.
[2018-07-30] MEDS ORDERED: Sodium Chloride 0.9% 1,000 ML PRIMARY IV SCH (19:00)
[2018-07-30] MEDS ORDERED: PANTOPRAZOLE IV 40 MG VIAL IVP ONE (19:47)
[2018-07-30] MEDS: Lactated Ringers 1,000 ML PRIMARY IV SCH (20:19)
[2018-07-30] MEDS ORDERED: Ertapenem Inj 1 GM in Sodium Chloride 0.9% 100 ML IV SCH (20:30)
[2018-07-30 21:00] LABS: BUN/CREATININE RATIO 23.12 (6-20)
--- NOTE | 2018-07-30 23:41 | DI ---
EXAM: US Abdomen Limited CLINICAL HISTORY: Renal failure, acute blood loss anemia, splenectomy. TECHNIQUE: Real-time ultrasound of the abdomen (limited) with image documentation. COMPARISON: CT dated 07/29/2018. FINDINGS: Right kidney: Right kidney measures 10.3 x 5.0 x 4.8 cm. No hydronephrosis. Echogenicity appears within normal limits. Left kidney: Left kidney measures 9.7 x 5.6 x 5.9 cm. No hydronephrosis. Echogenicity appears within normal limits. Bladder: Bladder not visualized. Spleen: Status post splenectomy. Free fluid: Trace free fluid in Villela's pouch and left upper quadrant. IMPRESSION: 1. Unremarkable sonographic appearance of the kidneys. No hydronephrosis. Correlate with laboratory values. 2. Status post splenectomy. 3. Trace free fluid in Villela's pouch and left upper quadrant, nonspecific. If there is clinical concern for hemorrhage, CT can further assess. 4. Bladder not visualized.
[2018-07-31 00:13] LABS: Hematocrit [HCT] 23.7 % (42.0-52.0); Hemoglobin [HGB] 8.1 g/dL (14.0-18.0); MEAN CORPUSCULAR HGB CONC 34.2 g/dL (33-37); MEAN CORPUSCULAR VOLUME 93.7 FL (80-90); MEAN PLATELET VOLUME 9.9 FL (7.4-12.2); RED BLOOD COUNT 2.53 10^6/uL (4.70-6.10)
[2018-07-31 00:27] LABS: BAND NEUTROPHILS % 3 % (0-10); BASOPHILS % (MANUAL) 0 % (0-1); EOSINOPHILS % (MANUAL) 0 % (0-8); MONOCYTES % (MANUAL) 4 % (0-12); NEUTROPHILS % (MANUAL) 75 % (50-80); PLATELET MORPHOLOGY COMMENT NORMAL MORPHOLOGY (NORM); RBC MORPHOLOGY COMMENT NORMAL MORPHOLOGY (NORM); WBC MORPHOLOGY COMMENT NORMAL MORPHOLOGY (NORM)
[2018-07-31] MEDS: MORPHINE SULFATE/PF PCA 30 MG/30 ML IV SCH ×2 (01:43→18:26)
[2018-07-31 04:56] LABS: Hematocrit [HCT] 23.7 % (42.0-52.0); Hemoglobin [HGB] 7.9 g/dL (14.0-18.0); MEAN CORPUSCULAR HEMOGLOBIN 31.3 PG (27-31); MEAN CORPUSCULAR HGB CONC 33.3 g/dL (33-37); MEAN PLATELET VOLUME 10.5 FL (7.4-12.2); RED BLOOD COUNT 2.52 10^6/uL (4.70-6.10)
[2018-07-31 05:08] LABS: HEMOGLOBIN A1C 5.88 % (4.2-6.0)
[2018-07-31] MEDS: Lactated Ringers 1,000 ML PRIMARY IV SCH ×2 (06:05→14:53)
[2018-07-31] MEDS ORDERED: Sodium Chloride 0.9% 500 ML PRIMARY IV ONE ×2 (06:33→06:49)
[2018-07-31] MEDS: PANTOPRAZOLE IV 40 MG VIAL IVP SCH (09:24)
[2018-07-31 12:27] LABS: Hematocrit [HCT] 29.7 % (42.0-52.0); Hemoglobin [HGB] 10.1 g/dL (14.0-18.0); MEAN CORPUSCULAR HEMOGLOBIN 31.5 PG (27-31); MEAN CORPUSCULAR VOLUME 92.5 FL (80-90); MEAN PLATELET VOLUME 10.2 FL (7.4-12.2); RED BLOOD COUNT 3.21 10^6/uL (4.70-6.10)
[2018-07-31 12:37] LABS: BUN/CREATININE RATIO 24.61 (6-20)
[2018-07-31] MEDS ORDERED: ENOXAPARIN SODIUM 30 MG/0.3 ML SYRINGE SUBCUT ONE (13:08)
--- NOTE | 2018-07-31 13:14 | PDOC(PROG) ---
Date of Service: 07/31/18 Time of Service: 13:09 Interval History: Patient seen and evaluated earlier today. Feels much better. Urinary output picked up overnight. No worsening of abdominal pain actually much better controlled. No nausea or vomiting. No gas or stool yet through the colostomy. No chest pain and no shortness of breath. Objective : Data - Labs CBC and BMP: 07/31/18 12:03 07/31/18 12:03 Additional Lab Results: 07/30/18 07/31/18 07/31/18 23:55 03:58 03:58 Hgb 8.1 L 7.9 L Hct 23.7 L 23.7 L PT INR Hemoglobin A1c 5.88 07/31/18 03:58 Hgb Hct PT 12.8 H INR 1.11 Hemoglobin A1c Objective : Exam - General General Appearance: No Acute Distress, Cooperative Additional General Exam Details: Vital Signs - Last Taken Temperature 97.7 F 07/31/18 10:11 Pulse Rate 103 H 07/31/18 12:00 Respiratory Rate 22 07/31/18 12:00 Blood Pressure 137/89 07/31/18 12:00 Pulse Ox 93 07/31/18 12:00 - Head Head Exam: Normal Inspection, Normocephalic, Atraumatic - Eye Eye Exam: No Scleral Icterus - ENT ENT Exam: Mucous Membranes Moist - Neck Neck Exam: JVP is not Raised - Respiratory Respiratory Exam: Clear to Auscultation - Bilaterally, Breathing Non Labored - Cardiovascular Cardiovascular Exam: RRR, No Murmur, No Clicks, No Gallops, No Rubs, No JVD - GI/Abdominal GI/Abdominal Exam: Non Distended, Soft Additional GI/Abdominal Exam Details: Colostomy looks pink and viable. Some blood in the bag - Extremities Extremities Exam: No Clubbing Present, No Edema Present, No Cyanosis Present - Neurological Neurological Exam: Alert, Oriented x 3, No Facial Droop, Speech Intact / Clear, Moves All Extremities Equally - Psychiatric Psychiatric Exam: Normal Affect, Normal Mood Assessment and Plan - Patient Problems (1) Acute renal failure Current Visit: Yes Status: Resolved Code(s): N17.9 - Acute kidney failure, unspecified Qualifiers: Acute renal failure type: unspecified Qualified Code(s): N17.9 - Acute kidney failure, unspecified (2) Acute blood loss anemia Current Visit: Yes Status: Acute Code(s): D62 - Acute posthemorrhagic anemia (3) Diverticulitis of large intestine with perforation Current Visit: Yes Status: Acute Code(s): K57.20 - Diverticulitis of large intestine with perforation and abscess without bleeding (4) Status post splenectomy Current Visit: Yes Status: Acute Code(s): Z90.81 - Acquired absence of spleen (5) History of testicular cancer Current Visit: Yes Status: Acute Code(s): Z85.47 - Personal history of malignant neoplasm of testis (6) Benign essential hypertension Current Visit: Yes Status: Acute Onset Date: 11/20/11 Code(s): I10 - Essential (primary) hypertension (7) Thrombocytopenia Current Visit: Yes Status: Acute Code(s): D69.6 - Thrombocytopenia, unspecified - Assessment / Plan Additional Assessment/Plan Details: Agree with the second 2 units of blood given. Hemoglobin much better at just over 10 post transfusion this morning. I think we should go ahead and start mobilizing the patient and I'll write for PT and OT. DVT prophylaxis with Lovenox. I spoke with the eICU provider regarding DVT prophylaxis. There is no evidence of DIC or other issue and the patient would be high risk for blood clots. Greatly appreciate advice from nephrology. The patient overall is probably stage II kidney disease with a creatinine baseline around 1.3-1.4 and he may benefit from seeing nephrology as an outpatient. 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 Vaccine updates pending as noted already. Labs in a.m.
--- NOTE | 2018-07-31 13:43 | PDOC(PROG) ---
Subjective Post Op Day: postop day 2 Pain Management: Peripheral STREETCAR REPAIRER Alanis Catheter: Yes Flatus: No Diet: NPO Date of Service: 07/31/18 Time of Service: 13:15 Interval History: Patient states that he is feeling better. Still hurts when he coughed. He states that his pain medicine is working for him. Objective : Data - Labs CBC and BMP: 07/31/18 12:03 07/31/18 12:03 - Vital Signs Vital Signs and I&O: Vital Signs - Last Taken Temperature 97.7 F 07/31/18 10:11 Pulse Rate 103 H 07/31/18 12:00 Respiratory Rate 07/31/18 12:00 Blood Pressure 137/89 07/31/18 12:00 Pulse Ox 93 07/31/18 12:00 Intake and Output (24hr x 4 totals) 07/29/18 07/30/18 07/31/18 08/01/18 05:59 05:59 05:59 05:59 Intake Total 6804 / 6804 2162 / 2162 563 / 563 Output Total 1855 / 1855 1400 / 1400 250 / 250 Balance 4949 / 4949 762 / 762 313 / 313 Objective : Exam - General General Appearance: No Acute Distress, Cooperative - Eye Eye Exam: PERRL - Respiratory Respiratory Exam: Clear to Auscultation - Bilaterally, Breathing Non Labored - Cardiovascular Cardiovascular Exam: RRR - GI/Abdominal GI/Abdominal Exam: Non Tender, Soft Assessment and Plan - Patient Problems (1) Diverticulitis large intestine w/o perforation or abscess w/bleeding Current Visit: Yes Status: Acute Code(s): K57.33 - Diverticulitis of large intestine without perforation or abscess with bleeding - Assessment / Plan Additional Assessment/Plan Details: Patient is actually improving. He still does not have much flatus out of the colostomy I would hold off another day before feeding him. Patient told me that 4 days prior to have a surgery had been eating anything indicating that he probably had an ileus for that long. Will have think about starting TPN or PPN once we get his fluid status stabilized
[2018-07-31] MEDS: HEPARIN 500 UNIT/5 ML SYRINGE FOR CENTRAL LINE IVP PRN ×3 (14:52→20:16)
[2018-07-31] MEDS ORDERED: ONDANSETRON 4 MG/2 ML VIAL IVP PRN (16:34)
[2018-07-31] MEDS ORDERED: NALOXONE 0.4 MG/1 ML VIAL IVP PRN ×2 (16:34)
[2018-07-31] MEDS ORDERED: Keys-Morphine PCA PRN ×2 (16:34)
[2018-07-31] MEDS ORDERED: MORPHINE SULFATE 4 MG/1 ML IVP PRN (16:34)
[2018-07-31] MEDS ORDERED: diphenhydrAMINE 50 MG/1 ML VIAL IVP PRN (16:34)
[2018-07-31] MEDS ORDERED: Acetaminophen 1000mg Inj 1,000 MG/100 ML VIAL IV PRN (16:34)
[2018-07-31 16:51] LABS: Hematocrit [HCT] 29.2 % (42.0-52.0); Hemoglobin [HGB] 9.9 g/dL (14.0-18.0); MEAN CORPUSCULAR HEMOGLOBIN 31.4 PG (27-31); MEAN CORPUSCULAR HGB CONC 33.9 g/dL (33-37); MEAN CORPUSCULAR VOLUME 92.7 FL (80-90); MEAN PLATELET VOLUME 10.4 FL (7.4-12.2); RED BLOOD COUNT 3.15 10^6/uL (4.70-6.10)
[2018-07-31 16:58] LABS: BUN/CREATININE RATIO 23.84 (6-20)
[2018-07-31 17:11] LABS: WBC MORPHOLOGY COMMENT SEE COMMENTS (NORM)
[2018-07-31 17:12] LABS: PLATELET MORPHOLOGY COMMENT SEE COMMENTS (NORM); RBC MORPHOLOGY COMMENT SEE COMMENTS (NORM)
[2018-07-31 17:13] LABS: BAND NEUTROPHILS % 8 % (0-10); BASOPHILS % (MANUAL) 0 % (0-1); EOSINOPHILS % (MANUAL) 0 % (0-8); METAMYELOCYTES % 0 %; MONOCYTES % (MANUAL) 5 % (0-12); MYELOCYTES % 0 %; NEUTROPHILS % (MANUAL) 80 % (50-80); PROMYELOCYTES % 0 %
[2018-07-31] MEDS ORDERED: Keys-Morphine PCA ONE (18:24)
[2018-07-31] MEDS: Ertapenem Inj 1 GM in Sodium Chloride 0.9% 100 ML IV SCH (20:15)
[2018-08-01] MEDS: Lactated Ringers 1,000 ML PRIMARY IV SCH ×2 (02:13→13:09)
[2018-08-01] MEDS: HEPARIN 500 UNIT/5 ML SYRINGE FOR CENTRAL LINE IVP PRN (04:20)
[2018-08-01 04:46] LABS: BASOPHILS # (AUTO) 0.02 10*3/UL; BASOPHILS % (AUTO) 0.1 % (0-1); EOSINOPHILS # (AUTO) 0 10*3/UL; EOSINOPHILS % (AUTO) 0 % (0-8); Hematocrit [HCT] 28.8 % (42.0-52.0); Hemoglobin [HGB] 9.7 g/dL (14.0-18.0); LYMPHOCYTES # (AUTO) 1.19 10*3/uL; MEAN CORPUSCULAR HEMOGLOBIN 31.3 PG (27-31); MEAN CORPUSCULAR HGB CONC 33.7 g/dL (33-37); MEAN CORPUSCULAR VOLUME 92.9 FL (80-90); MONOCYTES # (AUTO) 1.01 10*3/UL (0.3-0.8); MONOCYTES % (AUTO) 6.5 % (5-15); NEUTROPHILS # (AUTO) 13.33 10*3/UL; NEUTROPHILS % (AUTO) 85.4 % (50-80)
[2018-08-01 04:50] LABS: PLATELET MORPHOLOGY COMMENT NORMAL MORPHOLOGY (NORM); RBC MORPHOLOGY COMMENT NORMAL MORPHOLOGY (NORM); WBC MORPHOLOGY COMMENT NORMAL MORPHOLOGY (NORM)
[2018-08-01 04:54] LABS: BLOOD UREA NITROGEN 27 mg/dL (7-22)
[2018-08-01] MEDS: PANTOPRAZOLE IV 40 MG VIAL IVP SCH (08:53)
[2018-08-01] MEDS: ENOXAPARIN SODIUM 30 MG/0.3 ML SYRINGE SUBCUT SCH (08:53)
[2018-08-01] MEDS ORDERED: ENOXAPARIN SODIUM 30 MG/0.3 ML SYRINGE SUBCUT SCH (09:00)
--- NOTE | 2018-08-01 09:13 | PDOC(PROG) ---
Subjective Post Op Day: postop day 3 Pain Management: Peripheral INVENTORY ASSOCIATE Alanis Catheter: Yes Flatus: Yes Diet: NPO Date of Service: 08/01/18 Time of Service: 09:00 Interval History: Patient state he feels fine. Is hungry Objective : Data - Labs CBC and BMP: 08/01/18 04:20 08/01/18 04:20 - Vital Signs Vital Signs and I&O: Vital Signs - Last Taken Temperature 99.1 F 08/01/18 07:21 Pulse Rate 90 08/01/18 07:21 Respiratory Rate 20 08/01/18 07:21 Blood Pressure 144/80 08/01/18 07:21 Pulse Ox 94 08/01/18 07:21 Intake and Output (24hr x 4 totals) 07/30/18 07/31/18 08/01/18 08/02/18 05:59 05:59 05:59 05:59 Intake Total 6804 / 6804 2162 / 2162 3541 / 3541 Output Total 1855 / 1855 1400 / 1400 2750 / 2750 Balance 4949 / 4949 762 / 762 791 / 791 Objective : Exam - General General Appearance: Cooperative - Respiratory Respiratory Exam: Clear to Auscultation - Bilaterally - Cardiovascular Cardiovascular Exam: No Murmur - GI/Abdominal GI/Abdominal Exam: Non Tender, Non Distended, Soft Assessment and Plan - Patient Problems (1) Diverticulitis large intestine w/o perforation or abscess w/bleeding Current Visit: Yes Status: Acute Code(s): K57.33 - Diverticulitis of large i ntestine without perforation or abscess with bleeding - Assessment / Plan Additional Assessment/Plan Details: Patient overall is doing better. White count is going up and I think this is secondary to splenectomy not that he has ongoing sepsis. We'll keep an eye on this. Urine output is picking up. His BUN his creatinine have normalized. I think his Alanis can be DC'd. Will start having physical therapy work on the patient to get a wound VAC to heal the midline Incision.
--- NOTE | 2018-08-01 09:22 | PTI REPORT ---
Thank you for the referral of Fabrizio Macario. He was seen on 07/31/18 for an inpatient evaluation secondary to weakness. SUBJECTIVE: The patient is a 67-year-old male. The patient reports he lives in [place] with his in a house. The patient has 1-2 stairs to get in with a handrail. The patient has stairs to the basement. The patient previously was independent without a walker or assistive device. The patient reports pain in his abdomen. The patient reports that he has neuropathy in the bottoms of his feet and his hands but is getting around well prior to surgery. PAST MEDICAL HISTORY: Past medical history can be found in the patient's medical record. OBJECTIVE FINDINGS: General observations: Nursing okayed treatment prior to PT. The patient was on an IV, 1.5 liters of oxygen, and a Alanis catheter. Bed mobility: The patient required min assist x1 for supine to sit transfer to the edge of bed with head of bed elevated over 30 degrees. The patient required stand by assist for sit to supine transfer with head of bed flat. Transfers: The patient was instructed in sit to stand transfer with contact guard assist x2 with walker with max cues for hand placement and technique. Ambulation: The patient was instructed to ambulate approximately two steps forward and two steps backward with contact guard assist x2. ASSESSMENT: The patient is a 67-year-old male that presents status post abdominal surgery with weakness. The patient would benefit from skilled therapy in order to improve strength, functional mobility, and endurance. Problem List: Decreased strength Decreased functional mobility Short-Term Goals: To be met by discharge from inpatient: Patient will be independent with all transfers. Patient will be able to ambulate 150 feet independently. Patient will be able to ascend and descend stairs independently. Long-Term Goals: To be met following discharge from inpatient: Patient will benefit by being seen by outpatient physical therapy. TREATMENT PLAN: Patient will be seen B.I.D during the week and one time per day over the weekend as an inpatient for therapeutic exercise, functional activity, neuromuscular reeducation, gait training, and modalities as needed. INITIAL TREATMENT: Treatment today consisted of the initial evaluation. The patient was too fatigued to perform any further activity on this date. The patient was left in bed with bed alarm activated, call light within reach, and SCD pumps on his legs. PHILOMENAD
--- NOTE | 2018-08-01 09:40 | OTI REPORT ---
Thank you for the referral of Fabrizio Winter Macario. He was seen on 07/31/18 for an occupational therapy inpatient evaluation secondary to weakness. SUBJECTIVE: The patient is a 67-year-old male who underwent an abdominal surgery on Sunday. The patient does have a large abdominal wound that is being followed by nursing at this time and possibly PT in the future. At prior level of function the patient lived at home with his here in [place], [place]. The patient was independent with all ADL tasks, functional mobility, and ambulation without the use of assistive devices. The patient has 1-2 steps to the entrance of his home with a handrail and he has a set of stairs going to the basement within his home. He does have a handrail on this one as well. The patient has a history of testicular cancer and subsequent chemotherapy. 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 The patient currently reports that he is in quite a bit of pain. He does agree to get up and attempt to walk. He did report that he walked with nursing staff all the way down the [place] earlier today and is feeling tired at this time. PAST MEDICAL HISTORY: Past medical history can be found in the patient's medical record. OBJECTIVE FINDINGS: Bed mobility: The patient demonstrated the ability to move from sitting propped up in bed to edge of bed independently. Transfers: The patient completed a functional sit to stand transfer with contact guard assist for safety. He tolerated standing x2 minutes before requiring a rest break with the use of a standard walker for safety. The patient does report that he is feeling extremely weak today. Range of motion: Upper extremity range of motion of the shoulders was not assessed secondary to abdominal wound. Upper extremity range of motion for the elbows, hands, and wrists were within functional limits bilaterally. Strength: Upper extremity strength in the shoulders was not assessed. Upper extremity strength in the elbows is 5/5 for flexion/extension. Wrist strength is 4+/5 for flexion/extension. The patient demonstrates hand strength of 3/5 on the right and 4/5 on the left for gross grasp secondary to neuropathy. He does report that the right hand is much worse than the left. The patient is right handed. The patient has difficulty with fine motor tasks including fastening buttons secondary to his neuropathy and decreased sensation. ASSESSMENT: The patient may benefit from a long handled shoe horn, panelboard operator, and a sock aide. This was not given out today secondary to the patient's increase in pain and not wanting to attempt to do this task without the equipment. This will need to be assessed at a later date once the patient's pain decreases and the patient has more functional independence. Problem List: Generalized weakness Decreased activity tolerance Decreased ability to complete lower extremity dressing tasks due to abdominal wound Decreased ability to complete functional activities/ADLs Short-Term Goals: To be met by discharge from inpatient: Patient will demonstrate the ability to complete functional toileting task with stand by assistance only for the transfer, clothing management, and hygiene. Patient will demonstrate the ability to complete lower extremity dressing task to include donning and doffing of pants, socks, and shoes with modified independence with use of adaptive equipment as needed. Patient will be able to complete upper extremity dressing tasks independently. Patient will demonstrate the ability to stand at the sink with stand by assistance only for safety x10 minutes to complete standing grooming tasks and/or kitchen tasks. Patient will be able to complete all functional transfers independently. Patient will participate in fine motor tasks to assist with ADLs and bilateral hand strengthening. Patient will increase bilateral hand strength to at least 4+/5. Long-Term Goals: To be met following discharge from inpatient: Patient will return home to prior level of function and be independent with ADLs. TREATMENT PLAN: Patient will be seen B.I.D during the week and one time per day over the weekend as an inpatient to address the above goals and objectives. INITIAL TREATMENT: Treatment today consisted of the initial evaluation only. EZRA
--- NOTE | 2018-08-01 10:36 | OT.PROG ---
Progress Note Progress Note: pt refused skilled OT services today due to fatigue from previous PT session.
--- NOTE | 2018-08-01 11:20 | PDOC(PROG) ---
Date of Service: 08/01/18 Time of Service: 11:16 Interval History: No chest pain. Hurts more in his abdomen with coughing. No nausea and no vomiting. Objective : Data - Labs CBC and BMP: 08/01/18 04:20 08/01/18 04:20 Objective : Exam - General General Appearance: No Acute Distress, Cooperative Additional General Exam Details: Vital Signs - Last Taken Temperature 99.1 F 08/01/18 07:21 Pulse Rate 94 08/01/18 09:00 Respiratory Rate 20 08/01/18 08:00 Blood Pressure 144/80 08/01/18 07:21 Pulse Ox 91 08/01/18 09:00 - Eye Eye Exam: No Scleral Icterus - ENT ENT Exam: Mucous Membranes Moist - Neck Neck Exam: JVP is not Raised - Respiratory Respiratory Exam: Clear to Auscultation - Bilaterally, Breathing Non Labored - Cardiovascular Cardiovascular Exam: RRR, No Murmur, No Clicks, No Gallops, No Rubs, No JVD - GI/Abdominal GI/Abdominal Exam: Normal Bowel Sounds, Non Distended, Soft Additional GI/Abdominal Exam Details: Colostomy looks good. Bowel looks pink and normal - Extremities Extremities Exam: No Clubbing Present, No Edema Present, No Cyanosis Present - Neurological Neurological Exam: Alert, Oriented x 3, No Facial Droop, Speech Intact / Clear, Moves All Extremities Equally Assessment and Plan - Patient Problems (1) Acute blood loss anemia Current Visit: Yes Status: Acute Code(s): D62 - Acute posthemorrhagic anemia (2) Acute renal failure Current Visit: Yes Status: Resolved Code(s): N17.9 - Acute kidney failure, unspecified Qualifiers: Acute renal failure type: unspecified Qualified Code(s): N17.9 - Acute kidney failure, unspecified (3) Diverticulitis of large intestine with perforation Current Visit: Yes Status: Acute Code(s): K57.20 - Diverticulitis of large intestine with perforation and abscess without bleeding (4) Status post splenectomy Current Visit: Yes Status: Acute Code(s): Z90.81 - Acquired absence of spleen (5) History of testicular cancer Current Visit: Yes Status: Acute Code(s): Z85.47 - Personal history of malignant neoplasm of testis (6) Benign essential hypertension Current Visit: Yes Status: Acute Onset Date: 11/20/11 Code(s): I10 - Essential (primary) hypertension (7) Thrombocytopenia Current Visit: Yes Status: Acute Code(s): D69.6 - Thrombocytopenia, unspecified - Assessment / Plan Additional Assessment/Plan Details: Given cough, I'll go ahead and check a chest x-ray make sure not missing a pneumonia. Continue to hold off on antihypertensives. With fluid advancement in terms of diet, will decrease LR to 75 mL's per hour. 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 PT and OT. We'll order incentive spirometry. DVT prophylaxis. Vaccines in about 10 days. Invanz is on day #3. Would like to see improvement in white blood cell count prior to discontinuation, but will discuss with surgery tomorrow.
--- NOTE | 2018-08-01 13:43 | DI ---
XR CXR 1VW 08/01/2018 11:17 AM HISTORY: [facility] [place] Comparison: 07/27/2017. Findings: A single portable frontal view of the chest is submitted. A left chest Port-A-Cath with the tip projecting over the superior vena cava. Images demonstrate hypoinflation with right medial lung base opacity. There is a moderate-sized left pleural effusion. There is no pneumothorax. The heart size is at the upper limits of normal with incr eased pulmonary vasculature. The osseous structures are not significantly changed. Impression: 1. Right medial lung base consolidation. 2. Moderate sized left pleural effusion. 3. Borderline cardiomegaly with increased pulmonary vasculature could represent technique versus rodolfo y pulmonary edema in the setting of heart failure.
--- NOTE | 2018-08-01 16:25 | PT.PROG ---
Progress Note Progress Note: S. Patient refused to perform any therapy due to being sore. O. ABD pad was removed and replaced with a clean ABD pad and covered with Covaderm. A. Wound appears clean and no sign of infection noted. Patient had slight sanguinous drainage at the distal edge of the wound. Patient was left in bed with alarm and call light. P. Continue POC.
[2018-08-01] MEDS: Ertapenem Inj 1 GM in Sodium Chloride 0.9% 100 ML IV SCH (21:05)
[2018-08-02] MEDS: Lactated Ringers 1,000 ML PRIMARY IV SCH ×3 (00:41→17:51)
[2018-08-02] MEDS: MORPHINE SULFATE/PF PCA 30 MG/30 ML IV SCH (00:42)
[2018-08-02] MEDS: HEPARIN 500 UNIT/5 ML SYRINGE FOR CENTRAL LINE IVP PRN (04:42)
[2018-08-02 05:13] LABS: Hematocrit [HCT] 30.1 % (42.0-52.0); Hemoglobin [HGB] 9.9 g/dL (14.0-18.0); MEAN CORPUSCULAR HEMOGLOBIN 30.7 PG (27-31); MEAN CORPUSCULAR HGB CONC 32.9 g/dL (33-37); MEAN CORPUSCULAR VOLUME 93.5 FL (80-90); MEAN PLATELET VOLUME 9.9 FL (7.4-12.2); RED BLOOD COUNT 3.22 10^6/uL (4.70-6.10)
[2018-08-02 06:06] LABS: BLOOD UREA NITROGEN 24 mg/dL (7-22); BUN/CREATININE RATIO 21.81 (6-20)
[2018-08-02 06:22] LABS: PLATELET MORPHOLOGY COMMENT NORMAL MORPHOLOGY (NORM); RBC MORPHOLOGY COMMENT NORMAL MORPHOLOGY (NORM); WBC MORPHOLOGY COMMENT NORMAL MORPHOLOGY (NORM)
[2018-08-02 06:23] LABS: BAND NEUTROPHILS % 9 % (0-10); BASOPHILS % (MANUAL) 0 % (0-1); EOSINOPHILS % (MANUAL) 0 % (0-8); METAMYELOCYTES % 0 %; MONOCYTES % (MANUAL) 4 % (0-12); MYELOCYTES % 0 %; NEUTROPHILS % (MANUAL) 81 % (50-80); PROMYELOCYTES % 0 %
[2018-08-02] MEDS: ENOXAPARIN SODIUM 30 MG/0.3 ML SYRINGE SUBCUT SCH (08:04)
[2018-08-02] MEDS: PANTOPRAZOLE IV 40 MG VIAL IVP SCH (08:05)
--- NOTE | 2018-08-02 11:43 | PDOC(PROG) ---
Subjective Post Op Day: postop day 4 Pain Management: Peripheral ASPARAGUS BUNCHER Alanis Catheter: No Flatus: Yes Diet: Clear Liquids Ambulating: Yes Date of Service: 08/02/18 Time of Service: 11:42 Interval History: Patient has no complaints. Objective : Data - Labs CBC and BMP: 08/02/18 04:30 08/02/18 04:30 - Vital Signs Vital Signs and I&O: Vital Signs - Last Taken Temperature 97.4 F 08/02/18 11:18 Pulse Rate 101 H 08/02/18 11:18 Respiratory Rate 20 08/02/18 11:18 Blood Pressure 143/87 08/02/18 11:18 Pulse Ox 92 08/02/18 11:18 Intake and Output (24hr x 4 totals) 07/31/18 08/01/18 08/02/18 08/03/18 05:59 05:59 05:59 05:59 Intake Total 2162 / 2162 3541 / 3541 2650 / 2650 Output Total 1400 / 1400 2750 / 2750 700 / 700 375 / 375 Balance 762 / 762 791 / 791 1950 / 1950 -375 / -375 Objective : Exam - Respiratory Respiratory Exam: Clear to Auscultation - Bilaterally - Cardiovascular Cardiovascular Exam: RRR - GI/Abdominal GI/Abdominal Exam: Normal Bowel Sounds, Non Tender, Non Distended, Soft Assessment and Plan - Patient Problems (1) Diverticulitis large intestine w/o perforation or abscess w/bleeding Current Visit: Yes Status: Acute Code(s): K57.33 - Diverticulitis of large intestine without perforation or abscess with bleeding - Assessment / Plan Additional Assessment/Plan Details: Patient is vital the right lower lobe pneumonia. Antibodies her hospitalist. I think we can advance his diet as tolerated. Start him on full liquids. H opefully tomorrow switch him over to oral meds.
--- NOTE | 2018-08-02 13:07 | OT.PROG ---
Progress Note Progress Note: S: pt reported that he is not feeling good. He tried to get to the bathroom this morning but it did not go good. He was willing to get up and go for a walk. O: pt was seen in his room and needed mod A with LE dressing. He completed bed mobility INd to EOB. He completed sit to stand with min A to finish donning his LE's. He then sat back down before completing one more sit to stand Ind. He completed functional transfer approx 120 ft with CGA for safety. He did take x2 breaks during transfer, but remained standing. He was left upright in his chair with call light within reach and nursing present. A: pt participated well today compared to last couple of days. Nursing did observe redness around his left side that was reported by was not present yesterday. P: continue per POC.
--- NOTE | 2018-08-02 16:13 | PDOC(PROG) ---
Date of Service: 08/02/18 Time of Service: 16:08 Interval History: patient seen, evaluated earlier today. no chest pain and no SOB hurts when he coughs. Objective : Data - Labs CBC and BMP: 08/02/18 04:30 08/02/18 04:30 Objective : Exam - General General Appearance: No Acute Distress, Cooperative Additional General Exam Details: Selected Entries 08/01/18 19:15 Temperature 99.5 F Vital Signs - Last Taken Temperature 97.4 F 08/02/18 11:18 Pulse Rate 101 H 08/02/18 15:00 Respiratory Rate 14 08/02/18 14:00 Blood Pressure 143/87 08/02/18 11:18 Pulse Ox 92 08/02/18 14:00 - Head Head Exam: Normal Inspection, Normocephalic, Atraumatic - Eye Eye Exam: No Scleral Icterus - ENT ENT Exam: Mucous Membranes Moist - Neck Neck Exam: JVP is not Raised - Respiratory Respiratory Exam: Clear to Auscultation - Bilaterally, Breathing Non Labored - Cardiovascular Cardiovascular Exam: RRR, No Murmur, No Clicks, No Gallops, No Rubs, No JVD - GI/Abdominal GI/Abdominal Exam: Normal Bowel Sounds, Non Tender, Non Distended, Soft - Extremities Extremities Exam: No Clubbing Present, No Edema Present, No Cyanosis Present - Neurological Neurological Exam: Alert, Oriented x 3, No Facial Droop, Speech Intact / Clear, Moves All Extremities Equally Assessment and Plan - Patient Problems (1) Acute blood loss anemia Current Visit: Yes Status: Acute Code(s): D62 - Acute posthemorrhagic anemia (2) Acute renal failure Current Visit: Yes Status: Resolved Code(s): N17.9 - Acute kidney failure, unspecified Qualifiers: Acute renal failure type: unspecified Qualified Code(s): N17.9 - Acute kidney failure, unspecified (3) Diverticulitis of large intestine with perforation Current Visit: Yes Status: Acute Code(s): K57.20 - Diverticulitis of large intestine with perforation and abscess without bleeding Qualifiers: Diverticulitis bleeding: without bleeding Qualified Code(s): K57.20 - Diverticulitis of large intestine with perforation and abscess without bleeding (4) Status post splenectomy Current Visit: Yes Status: Acute Code(s): Z90.81 - Acquired absence of spleen (5) History of testicular cancer Current Visit: Yes Status: Acute Code(s): Z85.47 - Personal history of malignant neoplasm of testis (6) Benign essential hypertension Current Visit: Yes Status: Acute Onset Date: 11/20/11 Code(s): I10 - Essential (primary) hypertension (7) Thrombocytopenia Current Visit: Yes Status: Acute Code(s): D69.6 - Thrombocytopenia, unspecified - Assessment / Plan Additional Assessment/Plan Details: I discussed with infectious disease, encouraged psych consultation, and the recommendation was to continue Invanz. They recommended antibiotics until at le ast 48 hours post source control at about 10-14 days out. They agreed, no vaccination during this hospital stay. I encouraged patient to do incentive spirometry and to walk. Diet will be advanced as per surgery. Hopefully we can start getting him off the PROPERTY MANAGEMENT INTERN once he starts to take by mouth medications. Labs in a.m. Replace potassium.
[2018-08-02] MEDS ORDERED: CALCIUM CARBONATE 500 MG (TUMS) CHEWABLE TABLET PO PRN (16:54)
--- NOTE | 2018-08-02 17:12 | PT.PROG ---
Progress Note Progress Note: S. Patient stated he is having some pain this afternoon. O. Patient performed seated exercises in the form of long arc quads, heel toe raises, pillow squeezes all x 10 bilaterally, sit to stands x 10. Patient was left in bed with alarm and call light. wound dressing was removed and cleaned with wound cleanser then wound vac was applied with 100mm of pressure, Instructed nursing staff to remove dressing if wound vac is not functioning properly overnight. A. Patient tolerated exercises well, he continues to struggle with weakness and pain at this time. Wound appears clean and no signs of infection noted Wound measured at 27.5 cm long, 3 cm wide at the most distal end, moderate amount of serous sanguinous drainage noted, the wound bed presented with granulation tissue. P. Continue POC.
[2018-08-02] MEDS: Ertapenem Inj 1 GM in Sodium Chloride 0.9% 100 ML IV SCH (20:30)
[2018-08-02] MEDS ORDERED: METOPROLOL TARTRATE 5 MG/5 ML VIAL IVP PRN (20:46)
[2018-08-03] MEDS: HEPARIN 500 UNIT/5 ML SYRINGE FOR CENTRAL LINE IVP PRN ×2 (05:05→16:17)
[2018-08-03 05:21] LABS: Hematocrit [HCT] 36.7 % (42.0-52.0); Hemoglobin [HGB] 12.1 g/dL (14.0-18.0); MEAN CORPUSCULAR HEMOGLOBIN 30.3 PG (27-31); MEAN PLATELET VOLUME 10.2 FL (7.4-12.2); RED BLOOD COUNT 3.99 10^6/uL (4.70-6.10)
[2018-08-03 06:09] LABS: PLATELET MORPHOLOGY COMMENT NORMAL MORPHOLOGY (NORM); RBC MORPHOLOGY COMMENT NORMAL MORPHOLOGY (NORM); WBC MORPHOLOGY COMMENT NORMAL MORPHOLOGY (NORM)
[2018-08-03 06:43] LABS: BLOOD UREA NITROGEN 26 mg/dL (7-22); SERUM ALBUMIN 2.4 g/dL (3.5-4.8)
[2018-08-03 06:53] LABS: BAND NEUTROPHILS % 2 % (0-10); BASOPHILS % (MANUAL) 0 % (0-1); EOSINOPHILS % (MANUAL) 0 % (0-8); Erythrocyte Sediment Rate 57 MM/HR (0-15); METAMYELOCYTES % 0 %; MONOCYTES % (MANUAL) 8 % (0-12); MYELOCYTES % 0 %; NEUTROPHILS % (MANUAL) 84 % (50-80); PROMYELOCYTES % 0 %
[2018-08-03] MEDS ORDERED: ENOXAPARIN SODIUM 30 MG/0.3 ML SYRINGE SUBCUT SCH (09:00)
[2018-08-03] MEDS: ENOXAPARIN SODIUM 40 MG/0.4 ML SYRINGE SUBCUT SCH (10:29)
[2018-08-03] MEDS: PANTOPRAZOLE IV 40 MG VIAL IVP SCH (10:29)
[2018-08-03] MEDS ORDERED: Fluconazole 400mg (Premix) 400 MG/200 ML BAG IV ONE (10:33)
--- NOTE | 2018-08-03 11:28 | PT.PROG ---
Progress Note Progress Note: S. Patient stated he is tired and sore this morning. O. Patient performed bed mobility then performed sit to stand transfers x 3 Patient then ambulated 30 feet to the shower and 30 feet back to his room. wound vac was checked and nursing was instructed on how to change the canister. Patient was left in chair with alarm and call light. A. Patient tolerated transfers and ambulation fair, he continues to struggle with pain and fatigues easily. He would continue to benefit from skilled therapy to increase strength, endurance and safety at this time. Wound vac appeared intact and functioning properly. 300 mL of drainage noted in canister. P. continue POC.
[2018-08-03] MEDS ORDERED: HYDROcodone-APAP 5 MG -325 MG TABLET PO PRN (13:26)
[2018-08-03] MEDS ORDERED: POTASSIUM CHLORIDE 20 MEQ TAB PO ONE (13:26)
--- NOTE | 2018-08-03 13:33 | PDOC(PROG) ---
Date of Service: 08/03/18 Time of Service: 13:29 Interval History: complains mostly of burning of potassium in IV, improved with cessation of potassium no chest pain, no SOB feels a bit better wound vac in place. Objective : Data - Labs CBC and BMP: 08/03/18 05:00 08/03/18 05:00 Additional Lab Results: 08/03/18 08/03/18 05:00 05:00 Neutrophils % (Manual) 84 H Band Neutrophils % 2 ESR 57 H Calcium 8.4 L Total Bilirubin 3.5 H AST 20 L ALT 27 Alkaline Phosphatase 79 C-Reactive Protein 25.4 H Total Protein 5.0 L Albumin 2.4 L Globulin 2.6 Albumin/Globulin Ratio 0.90 L Objective : Exam - General General Appearance: No Acute Distress, Cooperative Additional General Exam Details: Vital Signs - Last Taken Temperature 97.3 F 08/03/18 13:00 Pulse Rate 111 H 08/03/18 13:00 Respiratory Rate 16 08/03/18 13:00 Blood Pressure 155/102 08/03/18 13:00 Pulse Ox 94 08/03/18 13:00 - Eye Eye Exam: No Scleral Icterus - ENT ENT Exam: Mucous Membranes Moist - Neck Neck Exam: JVP is not Raised - Respiratory Respiratory Exam: Clear to Auscultation - Bilaterally, Breathing Non Labored - Cardiovascular Cardiovascular Exam: RRR, No Murmur, No Clicks, No Gallops, No Rubs, No JVD - GI/Abdominal GI/Abdominal Exam: Normal Bowel Sounds, Non Distended, Soft, Ostomy Present (some liquid stool noted.) - Extremities Extremities Exam: No Clubbing Present, No Edema Present, No Cyanosis Present - Neurological Neurological Exam: Alert, Oriented x 3, No Facial Droop, Speech Intact / Clear, Moves All Extremities Equally Assessment and Plan - Patient Problems (1) Diverticulitis of large intestine with perforation Current Visit: Yes Status: Acute Code(s): K57.20 - Diverticulitis of large intestine with perforation and abscess without bleeding Qualifiers: Diverticulitis bleeding: without bleeding Qualified Code(s): K57.20 - Diverticulitis of large intestine with perforation and abscess without bleeding (2) Status post splenectomy Current Visit: Yes Status: Acute Code(s): Z90.81 - Acquired absence of spleen (3) Acute blood loss anemia Current Visit: Yes Status: Acute Code(s): D62 - Acute posthemorrhagic anemia (4) Acute renal failure Current Visit: Yes Status: Resolved Code(s): N17.9 - Acute kidney failure, unspecified Qualifiers: Acute renal failure type: unspecified Qualified Code(s): N17.9 - Acute kidney failure, unspecified (5) History of testicular cancer Current Visit: Yes Status: Acute Code(s): Z85.47 - Personal history of malignant neoplasm of testis (6) Benign essential hypertension Current Visit: Yes Status: Acute Onset Date: 11/20/11 Code(s): I10 - Essential (primary) hypertension (7) Thrombocytopenia Current Visit: Yes Status: Acute Code(s): D69.6 - Thrombocytopenia, unspecified - Assessment / Plan Additional Assessment/Plan Details: blood counts noted, no need for transfusion today stop IV potassium, with diet advancement, switch to PO potassium discontinue SHIFT MGR, PO pain medications continue Invanz, day #5 today. surgery wants to start fluconazole--as per surgery mobilize, continue PT and OT, I encouraged patient to ambulate in halls continue wound vac therapy start ostomy teaching. labs in AM
[2018-08-03] MEDS: HYDROCHLOROTHIAZIDE 12.5 MG CAPSULE PO SCH (16:16)
[2018-08-03] MEDS: Olmesartan Tab 20 MG TAB PO SCH (16:17)
[2018-08-03] MEDS: POTASSIUM CHLORIDE 20 MEQ TAB PO SCH (16:18)
[2018-08-03] MEDS: Ertapenem Inj 1 GM in Sodium Chloride 0.9% 100 ML IV SCH (21:13)
[2018-08-04 04:30] LABS: Hematocrit [HCT] 32.3 % (42.0-52.0); Hemoglobin [HGB] 10.7 g/dL (14.0-18.0); MEAN CORPUSCULAR HEMOGLOBIN 30.7 PG (27-31); MEAN CORPUSCULAR HGB CONC 33.1 g/dL (33-37); MEAN CORPUSCULAR VOLUME 92.8 FL (80-90); MEAN PLATELET VOLUME 10.2 FL (7.4-12.2); RED BLOOD COUNT 3.48 10^6/uL (4.70-6.10)
[2018-08-04 04:39] LABS: BLOOD UREA NITROGEN 25 mg/dL (7-22); BUN/CREATININE RATIO 22.72 (6-20)
[2018-08-04 05:25] LABS: PLATELET MORPHOLOGY COMMENT NORMAL MORPHOLOGY (NORM); WBC MORPHOLOGY COMMENT NORMAL MORPHOLOGY (NORM)
[2018-08-04 05:26] LABS: BAND NEUTROPHILS % 3 % (0-10); BASOPHILS % (MANUAL) 0 % (0-1); EOSINOPHILS % (MANUAL) 0 % (0-8); METAMYELOCYTES % 0 %; MONOCYTES % (MANUAL) 1 % (0-12); MYELOCYTES % 0 %; NEUTROPHILS % (MANUAL) 83 % (50-80); PROMYELOCYTES % 0 %
[2018-08-04 05:27] LABS: RBC MORPHOLOGY COMMENT NORMAL MORPHOLOGY (NORM)
[2018-08-04] MEDS: PANTOPRAZOLE IV 40 MG VIAL IVP SCH (08:00)
[2018-08-04] MEDS: HYDROCHLOROTHIAZIDE 12.5 MG CAPSULE PO SCH (08:00)
[2018-08-04] MEDS: POTASSIUM CHLORIDE 20 MEQ TAB PO SCH ×2 (08:00→17:43)
[2018-08-04] MEDS: ENOXAPARIN SODIUM 40 MG/0.4 ML SYRINGE SUBCUT SCH (08:00)
[2018-08-04] MEDS: Olmesartan Tab 20 MG TAB PO SCH (08:00)
--- NOTE | 2018-08-04 10:48 | PDOC(PROG) ---
Date of Service: 08/04/18 Time of Service: 11:00 Interval History: Subjective Patient feels better today compared to yesterday. Still have pain he said when he coughs but otherwise is not taking any pain medications in between. Some cough. No shortness of breath. Objective : Data - Labs CBC and BMP: 08/04/18 04:10 08/04/18 04:10 Objective : Exam - General General Appearance: No Acute Distress, Cooperative - Head Head Exam: Normal Inspection - Eye Eye Exam: Normal Appearance - ENT ENT Exam: Normal Exam - Neck Neck Exam: Normal Inspection - Respiratory Respiratory Exam: Clear to Auscultation - Bilaterally - Cardiovascular Cardiovascular Exam: RRR - GI/Abdominal GI/Abdominal Exam: Normal Bowel Sounds, Soft Additional GI/Abdominal Exam Details: Wound VAC in place. - Rectal Rectal Exam: Deferred - External Exam: Deferred Assessment and Plan - Patient Problems (1) Diverticulitis of large intestine with perforation Current Visit: Yes Status: Acute Comment: He is improving, continue IV antibiotics Diflucan was started yesterday today is his second day. His white count is coming down with repeat tomorrow. He is still weak continue physical therapy consider swing bed tomorrow or the day after. He is open to that. Code(s): K57.20 - Diverticulitis of large intestine with perforation and abscess without bleeding Qualifiers: Diverticulitis bleeding: without bleeding Qualified Code(s): K57.20 - Diverticulitis of large intestine with perforation and abscess without bleeding (2) Benign essential hypertension Current Visit: Yes Status: Acute Onset Date: 11/20/11 Comment: Blood pressure is acceptable continue same medications, he is on hydrochlorothiazide and Benicar. Code(s): I10 - Essential (primary) hypertension (3) Status post splenectomy Current Visit: Yes Status: Acute Comment: He will need vaccinations postdischarge. Per my discussion with Dr. Arredondo he did discuss it with Dr. Sifuentes and they have vaccine at the clinic and he will need it after discharge. Code(s): Z90.81 - Acquired absence of spleen (4) Acute renal failure Current Visit: Yes Status: Resolved Comment: This is resolved Code(s): N17.9 - Acute kidney failure, unspecified Qualifiers: Acute renal failure type: unspecified Qualified Code(s): N17.9 - Acute kidney failure, unspecified (5) Acute blood loss anemia Current Visit: Yes Status: Acute Comment: This is resolved Code(s): D62 - Acute posthemorrhagic anemia
--- NOTE | 2018-08-04 11:36 | PDOC(PROG) ---
Subjective Post Op Day: postop day 5 Alanis Catheter: No Flatus: Yes Diet: Regular Ambulating: Yes Date of Service: 08/04/18 Time of Service: 11:35 Interval History: Patient is 80 stone better than he did yesterday. Objective : Data - Labs CBC and BMP: 08/04/18 04:10 08/04/18 04:10 - Vital Signs Vital Signs and I&O: Vital Signs - Last Taken Temperature 97.9 F 08/04/18 11:23 Pulse Rate 105 H 08/04/18 11:23 Respiratory Rate 17 08/04/18 11:23 Blood Pressure 139/86 08/04/18 11:23 Pulse Ox 91 08/04/18 11:23 Intake and Output (24hr x 4 totals) 08/02/18 08/03/18 08/04/18 08/05/18 05:59 05:59 05:59 05:59 Intake Total 2650 / 2650 1483 / 1483 1310 / 1310 355 / 355 Output Total 700 / 700 1225 / 1225 2049 / 2049 300 / 300 Balance 1950 / 1950 258 / 258 -740 / -740 55 / 55 Objective : Exam - GI/Abdominal GI/Abdominal Exam: Normal Bowel Sounds, Non Tender, Non Distended, Soft Additional GI/Abdominal Exam Details: Ostomy is viable and functioning Assessment and Plan - Patient Problems (1) Diverticulitis large intestine w/o perforation or abscess w/bleeding Current Visit: Yes Status: Acute Code(s): K57.33 - Diverticulitis of large intestine without perforation or abscess with bleeding - Assessment / Plan Additional Assessment/Plan Details: Overall patient is doing very well. We'll continue the Diflucan but dropping d own to 200 mg a day. Patient needs physical therapy tic first-ranked.
--- NOTE | 2018-08-04 11:39 | PT.PROG ---
Progress Note Progress Note: S. Patient stated he is feeling better this morning. O. Patient performed bed mobility then performed sit to stand transfers x 3 Patient then ambulated 303 feet around the nurses station and back to his room where he was left in bed with alarm and call light. A. Patient tolerated transfers and ambulation fair, he continues to struggle with pain, however was able to ambulate much easier today. He would continue to benefit from skilled therapy to increase strength, endurance and safety at this time. Wound vac appeared intact and functioning properly. P. continue POC.
[2018-08-04] MEDS: Fluconazole 200mg (Premix) 200 MG/100 ML BAG IV SCH (13:32)
[2018-08-04] MEDS: Ertapenem Inj 1 GM in Sodium Chloride 0.9% 100 ML IV SCH (19:38)
[2018-08-05] MEDS: HEPARIN 500 UNIT/5 ML SYRINGE FOR CENTRAL LINE IVP PRN (04:20)
[2018-08-05 05:02] LABS: Hematocrit [HCT] 30.7 % (42.0-52.0); Hemoglobin [HGB] 10.1 g/dL (14.0-18.0); MEAN CORPUSCULAR HEMOGLOBIN 30.6 PG (27-31); MEAN CORPUSCULAR HGB CONC 32.9 g/dL (33-37); MEAN PLATELET VOLUME 10.3 FL (7.4-12.2)
[2018-08-05 05:14] LABS: BLOOD UREA NITROGEN 23 mg/dL (7-22)
[2018-08-05 06:04] LABS: PLATELET MORPHOLOGY COMMENT NORMAL MORPHOLOGY (NORM); RBC MORPHOLOGY COMMENT NORMAL MORPHOLOGY (NORM); WBC MORPHOLOGY COMMENT NORMAL MORPHOLOGY (NORM)
[2018-08-05 06:35] LABS: BAND NEUTROPHILS % 8 % (0-10); MONOCYTES % (MANUAL) 9 % (0-12); NEUTROPHILS % (MANUAL) 77 % (50-80)
[2018-08-05 06:36] LABS: BASOPHILS % (MANUAL) 0 % (0-1); EOSINOPHILS % (MANUAL) 0 % (0-8); METAMYELOCYTES % 0 %; MYELOCYTES % 0 %; PROMYELOCYTES % 0 %
[2018-08-05] MEDS: POTASSIUM CHLORIDE 20 MEQ TAB PO SCH ×4 (06:44→17:07)
[2018-08-05] MEDS: HYDROCHLOROTHIAZIDE 12.5 MG CAPSULE PO SCH (08:18)
[2018-08-05] MEDS: Olmesartan Tab 20 MG TAB PO SCH (08:18)
[2018-08-05] MEDS: ENOXAPARIN SODIUM 40 MG/0.4 ML SYRINGE SUBCUT SCH (08:19)
[2018-08-05] MEDS: PANTOPRAZOLE IV 40 MG VIAL IVP SCH (08:19)
--- NOTE | 2018-08-05 08:41 | PDOC(PROG) ---
Date of Service: 08/05/18 Time of Service: 08:45 Interval History: Subjective Overall he said he feels better than yesterday. Denying abdominal pain. He is still weak she is working with physical therapy. He is denying shortness of breath sometime he has some cough but overall things are better. Objective : Data - Labs CBC and BMP: 08/05/18 04:35 08/05/18 04:35 Objective : Exam - General General Appearance: No Acute Distress, Cooperative - Head Head Exam: Normal Inspection - Eye Eye Exam: Normal Appearance - ENT ENT Exam: Normal Exam - Neck Neck Exam: Normal Inspection - Respiratory Respiratory Exam: Clear to Auscultation - Bilaterally - Cardiovascular Cardiovascular Exam: RRR - GI/Abdominal GI/Abdominal Exam: Soft, No Organomegaly Additional GI/Abdominal Exam Details: Wound VAC in place. Colostomy in place. - Rectal Rectal Exam: Deferred - External Exam: Deferred - Extremities Extremities Exam: Normal Inspection - Back Back Exam: Normal Inspection - Neurological Neurological Exam: Alert, Oriented x 3, CN II-XII Intact, No Facial Droop, Speech Intact / Clear, Moves All Extremities Equally - Psychiatric Psychiatric Exam: Normal Affect Assessment and Plan - Patient Problems (1) Diverticulitis of large intestine with perforation Current Visit: Yes Status: Acute Comment: Continue current antibiotics. His white count is higher than yesterday. I'll discuss with Dr. Tipton he is denying abdominal pain there is no fever. Part of the elevation may be secondary to the splenectomy itself. Will repeat tomorrow. Code(s): K57.20 - Diverticulitis of large intestine with perforation and abscess without bleeding Qualifiers: Diverticulitis bleeding: without bleeding Qualified Code(s): K57.20 - Diverticulitis of large intestine with perforation and abscess without bleeding (2) Benign essential hypertension Current Visit: Yes Status: Acute Onset Date: 11/20/11 Comment: Same med Code(s): I10 - Essential (primary) hypertension (3) Status post splenectomy Current Visit: Yes Status: Acute Comment: He will need vaccination later on, he need follow-up with ID for that. Code(s): Z90.81 - Acquired absence of spleen (4) Acute renal failure Current Visit: Yes Status: Resolved Comment: This is resolved Code(s): N17.9 - Acute kidney failure, unspecified Qualifiers: Acute renal failure type: unspecified Qualified Code(s): N17.9 - Acute kidney failure, unspecified (5) Acute blood loss anemia Current Visit: Yes Status: Acute Comment: Hematocrit and hemoglobin are acceptable. Code(s): D62 - Acute posthemorrhagic anemia
--- NOTE | 2018-08-05 10:34 | PT.PROG ---
Progress Note Progress Note: S. Patient stated he is tired however is feeling better today. he agreed to go for a walk. O. Patient ambulated 300 feet around the nurses station. He was left in his chair with call light. Wound vac was inspected and appeared to be intact and functioning properly. Will Redress 08/06 AM. A. Patient tolerated ambulation well, he was able to ambulate with stand by guard assist, he continues to fatigue easily however is making gains with strength at this time. Patient would continue to benefit from skilled therapy at this time. P. Continue POC.
[2018-08-05] MEDS: Fluconazole 200mg (Premix) 200 MG/100 ML BAG IV SCH (13:01)
[2018-08-05] MEDS: Ertapenem Inj 1 GM in Sodium Chloride 0.9% 100 ML IV SCH (20:07)
[2018-08-06] MEDS: HEPARIN 500 UNIT/5 ML SYRINGE FOR CENTRAL LINE IVP PRN (04:22)
[2018-08-06 04:40] LABS: Hematocrit [HCT] 31.5 % (42.0-52.0); Hemoglobin [HGB] 10.3 g/dL (14.0-18.0); MEAN CORPUSCULAR HEMOGLOBIN 30.5 PG (27-31); MEAN CORPUSCULAR HGB CONC 32.7 g/dL (33-37); MEAN CORPUSCULAR VOLUME 93.2 FL (80-90); MEAN PLATELET VOLUME 10.1 FL (7.4-12.2); RED BLOOD COUNT 3.38 10^6/uL (4.70-6.10)
[2018-08-06 05:33] LABS: BLOOD UREA NITROGEN 20 mg/dL (7-22); BUN/CREATININE RATIO 16.66 (6-20)
[2018-08-06 05:45] LABS: BAND NEUTROPHILS % 2 % (0-10); BASOPHILS % (MANUAL) 0 % (0-1); EOSINOPHILS % (MANUAL) 2 % (0-8); METAMYELOCYTES % 0 %; MONOCYTES % (MANUAL) 2 % (0-12); MYELOCYTES % 0 %; NEUTROPHILS % (MANUAL) 86 % (50-80); PLATELET MORPHOLOGY COMMENT NORMAL MORPHOLOGY (NORM); PROMYELOCYTES % 0 %; RBC MORPHOLOGY COMMENT NORMAL MORPHOLOGY (NORM); WBC MORPHOLOGY COMMENT NORMAL MORPHOLOGY (NORM)
[2018-08-06] MEDS: POTASSIUM CHLORIDE 20 MEQ TAB PO SCH (06:48)
[2018-08-06 06:54] VITALS: TEMP 99.1
[2018-08-06] MEDS: PANTOPRAZOLE IV 40 MG VIAL IVP SCH (08:18)
[2018-08-06] MEDS: Olmesartan Tab 20 MG TAB PO SCH (08:18)
--- NOTE | 2018-08-06 09:18 | DI ---
CT ABDOMEN SCAN WITH IV CONTRAST, 08/06/2018 7:00 AM : Clinical History: Status post Sanchez's procedure for acute diverticulitis with perforation. Status p ost splenectomy secondary to intraoperative hemorrhage. Rising white count postoperatively. Previous Exam: 07/29/2018. IV Contrast: 65 mL of Ultravist 370. Oral Contrast: No oral contrast ordered. Rectal Contrast: No rectal contrast ordered. Lungs: Left lower lobe atelectasis with a small left pleural effusion. Liver: Normal. Gallbladder: Grossly normal. Adrenal Glands: Normal. Spleen: Status post splenectomy. There is now fluid present in the splenic fossa that has recreated t he exact dimensions of the spleen on the preoperative scans. On the coronal scans, there is enhanceme nt at the perimeter of this fluid collection in the area of the left diaphragm has a thickness twice that of normal diaphragmatic tissue. Although there are no gas bubbles present, this fluid collection may be encapsulated making it suspicious for an abscess cavity. Pancreas: Normal. Kidneys: Normal size, shape, position and contour. No hydronephrosis or hydroureter. No renal or uret eral calculi. Masses: None. Lymph Nodes: Normal. Ascites: There is a small amount of free fluid in the left outer. There is also fluid in the retroper itoneal space between the adrenal gland and the body and tail of the pancreas. This fluid could be se condary to the splenectomy. Alternatively, since at the time of surgery, the perforation of the colon was found to have dissected into the retroperitoneal space and this could also explain the presence of fluid. No gas bubbles are seen within this fluid collection. Free Air: None. Spine: Normal lower thoracic and lumbar spine. READING: Normal CT abdomen scan. CT PELVIS SCAN WITH IV CONTRAST, 08/06/2018 7:00 AM: Clinical History: See above. Previous Exam: 07/29/2018. Contrast: Same bolus used for CT scans of the abdomen. Masses: No masses or enhancing lesions. Ascites: There is a small amount of fluid in the right gutter inferiorly as well as in the pelvis.. Free Air: None. Lymph Nodes: No adenopathy. Appendix: Normal. Small Bowel: Normal small bowel, terminal ileum, and ileocecal valve. Colon: There is a diversion colostomy in the left side of the abdomen. There is a Sanchez's pouch brittanie t is intact. Bladder: Normal. Prostate: The prostate is enlarged. Hernias: None. Bony Pelvis: Normal sacrum, pelvic bones, and hips. Additional Findings: On the axial and coronal scans, there is an apparent wound dehiscence deep to th e surgical dressing. READIN. Status post sigmoid colectomy with a diverting colostomy on the left side and creation of the Harvinder tman's pouch. 2. Small amount of fluid in the pelvis and right gutter. 3. There may be wound dehiscence. Comment: The results of the findings regarding the splenic fossa were discussed with the attending neetu hale at approximately 0845 hours this morning.
--- NOTE | 2018-08-06 10:41 | PDOC(PROG) ---
Subjective Post Op Day: postop day 8 Pain Management: PO Alanis Catheter: No Flatus: Yes Diet: Regular Ambulating: Yes Date of Service: 08/06/18 Time of Service: 08:30 Interval History: Patient had a coughing spell and developed abdominal pain. But other than that he's been doing fine. He denies any fever or chills. Objective : Data - Labs CBC and BMP: 08/06/18 04:15 08/06/18 04:15 - Vital Signs Vital Signs and I&O: Vital Signs - Last Taken Temperature 99.1 F 08/06/18 06:53 Pulse Rate 109 H 08/06/18 06:53 Respiratory Rate 18 08/06/18 06:53 Blood Pressure 140/83 08/06/18 06:53 Pulse Ox 93 08/06/18 06:53 Intake and Output (24hr x 4 totals) 08/04/18 08/05/18 08/06/18 08/07/18 05:59 05:59 05:59 05:59 Intake Total 1310 / 1310 1570 / 1570 1095 / 1095 360 / 360 Output Total 2049 / 2049 1475 / 1475 1200 / 1200 Balance -740 / -740 95 / 95 -105 / -105 360 / 360 Objective : Exam - General General Appearance: No Acute Distress - GI/Abdominal GI/Abdominal Exam: Non Tender, Non Distended, Soft Assessment and Plan - Patient Problems (1) Diverticulitis large intestine w/o perforation or abscess w/bleeding Current Visit: Yes Status: Acute Code(s): K57.33 - Diverticulitis of large intestine without perforation or abscess with bleeding - Assessment / Plan Additional Assessment/Plan Details: Patient's white count continued to decline slightly on antibiotics. He is afebrile but we did do a CT scan. It does show some fluid collections in the left upper quadrant. I agree with Dr. Singh that he needs be drained for diagnostic purposes. We'll see if he can arrange is to be done at [facility] with invasive radiology.
--- NOTE | 2018-08-06 11:36 | DCSUMMARY ---
Hospitalization Summary Admit Date: 07/29/2018 Discharge Date: 08/06/18 Hospital Course: Transfer diagnoses 1. Fluid in the splenic fossa with enhancement at the perimeter of this fluid collection, this fluid collection may be encapsulated making it suspicious for an abscess cavity. 2. Left lower lobe atelectasis with a small left pleural effusion 3. Status post Sameer procedure for acute diverticulitis with perforation 4. Status post splenectomy for intraoperative bleeding 5. Status post application of wound VAC 6. Right middle lobe pneumonia 7. Anemia secondary to operative loss status post blood transfusion 8. History of testicular cancer status post chemotherapy in remission 9. History of hypertension 10. Acute renal failure postoperatively resolved Hospital course This is a 67 years old male with medical history significant for history of hypertension, history of testicular cancer status post chemotherapy currently in remission who presented to the hospital with abdominal pain and was found to have colonic diverticulosis with evidence of hollow viscus perforation, in the left lower quadrant there was the flocculent collection that most likely represent extraluminal stool. He was taken to surgery did receive Invanz and had Sameer procedure, there was intraoperative bleeding from the spleen that required splenectomy. Postoperatively he had anemia required 4 units of blood. There was also acute renal failure creatinine went up to 1.9 responded to flui ds. There was also right middle lobe consolidation continued same antibiotics. White count went up to 23,000 at that time in addition to the Invanz, Diflucan was added and that was on August 04. White count did come down to 17.6 on the . We continued with with the Diflucan and the Invanz. Patient was making improvement he was off the SOLVENT RECOVERER he did not require much pain medication. Started physical therapy as he is still weak. However his white count started to go up yesterday to a 19,000 today's 22,800. He did have a repeat CT scan today which showed fluid in the splenic fossa with enhancement of the perimetrium of this fluid collection raises possibility of an abscess. Dr. Tipton did speak with the interventional radiology in [place] and the plan is for him to have a drainage of the collection. I did speak with the hospitalist, the surgeon and ID at [facility] patient was accepted and will be transferred there for further care. Did discuss that with the patient he agreed on transfer. I did hold his Lovenox which was given for DVT prophylaxis today and the last time he received it was yesterday. Laboratory Results 07/29/18 08/01/18 08/06/18 11:10 04:20 04:15 WBC 22.81 H RBC 3.38 L Hgb 10.3 L Hct 31.5 L MCV 93.2 H MCH 30.5 MCHC 32.7 L RDW Std Deviation 48.7 RDW Coeff of Sravani 14.9 H Plt Count 306 MPV 10.1 Neutrophils % (Manual) 86 H Band Neutrophils % 2 Lymphocytes % (Manual) 9 L Monocytes % (Manual) 2 Eosinophils % (Manual) 2 Basophils % (Manual) 0 Metamyelocytes % 0 Myelocytes % 0 Promyelocytes % 0 Blast Cells 0 WBC Morphology Comment Normal morphology Plt Morphology Comment Normal morphology RBC Morph Comment Normal morphology Sodium Potassium Chloride Carbon Dioxide Anion Gap BUN Creatinine Estimated GFR BUN/Creatinine Ratio Glucose Calculated Osmolality Calcium Lipase Crossmatch See Detail See Detail 08/06/18 08/06/18 04:15 05:00 WBC RBC Hgb Hct MCV MCH MCHC RDW Std Deviation RDW Coeff of Sravani Plt Count MPV Neutrophils % (Manual) Band Neutrophils % Lymphocytes % (Manual) Monocytes % (Manual) Eosinophils % (Manual) Basophils % (Manual) Metamyelocytes % Myelocytes % Promyelocytes % Blast Cells WBC Morphology Comment Plt Morphology Comment RBC Morph Comment Sodium 134 L Potassium 3.8 Chloride 97 L Carbon Dioxide 27 Anion Gap 10 BUN 20 Creatinine 1.2 Estimated GFR > 60 BUN/Creatinine Ratio 16.66 Glucose 102 Calculated Osmolality 280.0 Calcium 7.8 L Lipase 154 Crossmatch Transfer instruction currently nothing by mouth previous diet was regular mechanical soft Medications Active Medications Hydrocodone Bitart/Acetaminophen (Herman 5/325 Tab) 1 tab PO Q4H PRN PRN Reason: Pain Last Admin: 08/06/18 08:50 Dose: 1 tab Documented by: Calcium Carbonate (Tums) 2 tab PO Q4H PRN PRN Reason: Heartburn Enoxaparin Sodium (Lovenox Inj) 40 mg SUBCUT DAILY PAUL Last Admin: 08/05/18 08:19 Dose: 40 mg Documented by: Heparin Sodium (Porcine) (Heparin Lock Inj (For Central Line)) 500 unit IVP BID PRN PRN Reason: Flush Last Admin: 08/06/18 04:22 Dose: 500 unit Documented by: Ertapenem 1 gm/ Sodium (Chloride) 100 mls @ 200 mls/hr IV Q24H [facility] Last Admin: 08/05/18 20:07 Dose: 200 mls/hr Documented by: Sodium Chloride (Normal Saline 0.9%) 25 mls @ 200 mls/hr IV .Post Infusion PRN PRN Reason: No Primary IV for Flush ONLY Last Admin: 08/05/18 20:07 Dose: 200 mls/hr Documented by: Fluconazole/Sodium Chloride (Diflucan 200mg (Premix)) 200 mg in 100 mls @ 100 mls/hr IV Q24H [facility] Last Admin: 08/05/18 13:01 Dose: 100 mls/hr Documented by: Metoprolol Tartrate (Lopressor Inj) 2.5 mg IVP Q6H PRN PRN Reason: SBP greater than 165 Olmesartan (Benicar) 20 mg PO DAILY [facility] Last Admin: 08/06/18 08:18 Dose: 20 mg Documented by: Ondansetron HCl (Zofran Inj) 4 mg IVP Q4H PRN PRN Reason: NAUSEA / VOMITING Pantoprazole Sodium (Protonix Inj) 40 mg IVP DAILY [facility] Last Admin: 08/06/18 08:18 Dose: 40 mg Documented by: Potassium Chloride (Klor-Con) 20 meq PO TID MEALS [facility] Last Admin: 08/06/18 06:48 Dose: 20 meq Documented by: Follow-up per [facility] post discharge. Exam - Vitals Vital Signs: Vital Signs Temperature 99.1 F Temperature Source Oral Pulse Rate [Pulse Oximeter] 109 Pulse Rate [right] 117 Pulse Rate 101 Respiratory Rate 18 Blood Pressure [Right Arm] 143/79 Blood Pressure [Left Arm] 140/83 Blood Pressure 129/79 Pulse Ox [right] 93 Pulse Ox 93 Oxygen Flow Rate [right] 2.5 Oxygen Flow Rate 3 Oxygen Delivery Method [right] Nasal Cannula Oxygen Delivery Method Room Air Height 5 ft 10 in Weight 191 lb - General General Appearance: No Acute Distress, Cooperative - Head Head Exam: Normal Inspection - Eye Eye Exam: POSITIVE: Normal Appearance - ENT ENT Exam: POSITIVE: Normal Exam - Neck Neck Exam: Normal Inspection - Respiratory Respiratory Exam: POSITIVE: Clear to Auscultation - Bilaterally - Cardiovascular Cardiovascular Exam: POSITIVE: RRR - GI/Abdominal Additional GI/Abdominal Exam Details: Wound VAC in place, colostomy in place - External Exam: POSITIVE: Deferred Exam: POSITIVE: Deferred - Extremities Extremities Exam: POSITIVE: Normal Inspection - Back Back Exam: POSITIVE: Normal Inspection - Neurological Neurological Exam: POSITIVE: Alert, Oriented x 3, CN II-XII Intact, No Facial Droop, Speech Intact / Clear, Moves All Extremities Equally - Psychiatric Psychiatric Exam: POSITIVE: Normal Affect Patient Problems - Patient Problem List (1) Diverticulitis of large intestine with perforation Current Visit: Yes Status: Acute Code(s): K57.20 - Diverticulitis of large intestine with perforation and abscess without bleeding Qualifiers: Diverticulitis bleeding: without bleeding Qualified Code(s): K57.20 - Diverticulitis of large intestine with perforation and abscess without bleeding Category: Medical (2) Benign essential hypertension Current Visit: Yes Status: Acute Onset Date: 11/20/11 Code(s): I10 - Essential (primary) hypertension Category: Medical (3) Status post splenectomy Current Visit: Yes Status: Acute Code(s): Z90.81 - Acquired absence of spleen Category: Surgical (4) Acute renal failure Current Visit: Yes Status: Resolved Code(s): N17.9 - Acute kidney failure, unspecified Qualifiers: Acute renal failure type: unspecified Qualified Code(s): N17.9 - Acute kidney failure, unspecified Category: Medical (5) Acute blood loss anemia Current Visit: Yes Status: Acute Code(s): D62 - Acute posthemorrhagic anemia Category: Medical
[2018-08-06 11:49] VITALS: BP 136/81; RESP 20; O2SAT 91
--- NOTE | 2018-08-06 16:46 | PT.PROG ---
Progress Note Progress Note: S. Patient stated he is in pain this morning, and doesn't feel like doing any exercises. O. Wound dressing was removed and cleaned with wound cleanser then wound vac was applied with 100mm of pressure. A. Patient tolerated exercises well, he continues to struggle with weakness and pain at this time. Wound appears clean and no signs of infection noted Wound measured at 27 cm long, 3 cm wide at the most distal end, the wound bed presented with granulation tissue. P. Continue POC.
== END 2018-08-06 12:27 | disposition short-term general hospital (02) | DRG 330 ==
LOC: ER 11:04 → OR 16:06 → ICU 20:29 → MED/SURG 07-31 14:52
PROVIDERS: ADMIT Surgery; ATTEND Family Medicine